=== PATIENT | female | born 2000 | race Caucasian/White ===

== ENCOUNTER 2023-09-12 16:41 | Outpatient (OUT) | payer MEDICAID, SELFPAY ==
--- NOTE | 2023-09-12 16:55 | US_ITS ---
The [address] [address] Patient Name: THOMAS HART MRN: [id number] date: 2000 Sex: F Assigned Patient Location: Current Patient Location: Accession/Order Number: [id number] Exam Date: 09/12/2023 17:00 Report Date: 09/13/2023 06:50 At the request of: KENYON DAS Procedure: US OB transvaginal EXAMINATION: US OB transvaginal HISTORY: Amenorrhea N91.2 COMPARISON: No relevant comparison available. FINDINGS: GESTATIONAL SAC: Present and normal appearing. YOLK SAC: Present and normal appearing. POLE: Present and normal appearing. CARDIAC: Present. UTERUS: Small subchorionic hematoma. OVARIES: Right: Normal. Left: Normal. CERVIX: 4.4 cm in length and closed. CUL-DE-SAC: Normal. OTHER: None. AGE BY LMP: 6 weeks 6 days LEELEE BY LMP: 05/01/2024 AGE BY US CRL: 7 weeks 3 days LEELEE BY US CRL: 04/27/2024 US/US OB transvaginal IMPRESSION: 1. Single live intrauterine . Electronically authenticated by: JAZMIN HALE Date: 09/13/2023 06:50
== END 2023-09-12 16:42 | disposition home or self-care (01) ==
LOC: US 16:46
PROVIDERS: PCP Family Medicine; Visit Provider Midwife
DX: Z34.91 Encounter for supervision of normal pregnancy, unspecified, first trimester (principal); Z3A.01 Less than 8 weeks gestation of pregnancy
CPT/HCPCS: 76817

== ENCOUNTER 2024-02-07 07:21 | Outpatient (RCR) | payer MEDICAID, SELFPAY ==
[2024-02-07 15:00] VITALS: BP 126/82; PULSE 100; O2SAT 96
[2024-02-07] MEDS: RHO(D) IMMUNE GLOBULIN 1,500 UNIT SYRINGE 1500 UNIT IM (15:08)
--- NOTE | 2024-02-07 15:09 | PC.NURSE ---
Pt is here for [facility], she had blood work completed yesterday and confirmed Rh Negative. Vitals obtained and stable, she tolerated injection well and denies any issues or concerns. She was discharged home ambulatory.
== END 2024-02-07 15:11 | disposition home or self-care (01) ==
LOC: INF 07:21
PROVIDERS: PCP Family Medicine; Visit Provider Midwife
DX: O26.893 Other specified pregnancy related conditions, third trimester (principal); Z67.91 Unspecified blood type, Rh negative; Z3A.00 Weeks of gestation of pregnancy not specified
CPT/HCPCS: 36415; 86850; 86900; 86901; 96372; J2790

== ENCOUNTER 2024-04-19 04:18 | Inpatient (IN) | payer MEDICAID, SELFPAY ==
[2024-04-19] VITALS (24 sets, daily range): BP systolic 114–153; BP diastolic 56–96; PULSE 67–120; TEMP 36.7–37
--- OUTSIDE RECORDS SUMMARY | 2024-04-19 04:23 | XMS_ITS | CCD ---
Author Organization [facility] Care Team Providers Care Body Sander Name Role Phone Hajdari, Astrit H Unavailable Unavailable Hajdari, Astrit H Unavailable Unavailable NONE, XXXX Unavailable Unavailable Mike Hall Unavailable Unavailable Mike Hall Unavailable Unavailable NONE, XXXX Unavailable Unavailable SCOTT LEW Admitting Unavailable SCOTT LEW Attending Unavailable MISC, DOCTOR Primary Care Unavailable SCOTT LEW Consulting Unavailable Unavailable Primary Care Provider UnavailKENYON Forrest Attending Unavailable JALNY VOARERIE Admitting Unavailable Beatris Cosby MD Primary Care Provider KENYON VORA Referring Unavailable BEATRIS COSBY Primary Care Unavailable VASYL LOPEZ Attending Unavailable LÓPEZ VORAE Referring Unavailable BEATRIS COSBY Primary Care Unavailable LÓPEZ VORAE Referring Unavailable BEATRIS COSBY Primary Care Unavailable BEATRIS COSBY Primary Care Unavailable TARIQ CEJA Attending Unavailable BEATRIS COSBY Primary Care Unavailable CLAUDETTE CERVANTES Attending Unavailable THIAGO KENYON Admitting Unavailable LÓPEZ VORAE Attending Unavailable JALYN VORAERIE Referring Unavailable BEATRIS COSBY Primary Care Unavailable KENYON VORA Attending Unavailable FLOROKENYON Attending Unavailable FLOROKENYON L Attending Unavailable FLOROKENYON Attending Unavailable FLOROKENYON Attending Unavailable FLOROKENYON Attending Unavailable FLOROKENYON L Referring Unavailable FLOROKENYON Attending Unavailable FLOROKENYON Attending KENYON [place] Referring Unavailable KENYON VORA Attending Unavailable KENYON VORA Attending Unavailable KENYON VORA Attending Unavailable KENYON VORA Attending Unavailable Allergies Allergy Classification Reported Allergen(s) Allergy Type Date of Onset Reaction(s) Facility NSAIDs (1 source) Ibuprofen Drug Allergy 8 Nausea And Vomiting [facility] Promethazine (1 source) Promethazine Drug Allergy 8 Other (See Comments) [facility] (1 source) ibuprofen; Translations: [Motrin] Drug Allergy [facility] (1 source) No Known Allergies; Translations: [No Known Allergies] Propensity to adverse reactions (disorder) [facility] (1 source) Tylenol Extra Strength EZ; Translations: [Tylenol Extra Strength EZ] Propensity to adverse reactions (disorder) [facility] (5 sources) Ibuprofen; Translations: [IBUPROFEN] Drug Allergy 8 [facility] (5 sources) Promethazine; Translations: [PROMETHAZINE] Drug Allergy [facility] Current Medications Medication Drug Class(es) Dates Sig (Normalized) Sig (Original) acetaminophen 325 mg oral tablet (2 sources) Start: 01-01-2021 End: 01-02-2021 acetaminophen (TYLENOL) tablet 650 mg benzocaine 200 mg/ml / menthol 5 mg/ml topical spray (1 source) Standardized Chemical Allergen Start: 01-02-2021 benzocaine-menthol (DERMOPLAST) 20-0.5 % spray buprenorphine 8 mg sublingual tablet (5 sources) Partial Opioid Agonist Start: 01-03-2021 buprenorphine (SUBUTEX) SL tablet 4 mg Start: 01-02-2021 buprenorphine (SUBUTEX) SL tablet 6 mg Start: 01-02-2021 End: 01-02-2021 buprenorphine (SUBUTEX) SL t ablet 4 mg Start: 01-01-2021 End: 01-02-2021 buprenorphine (SUBUTEX) SL t ablet 6 mg buprenorphine (S UBUTEX) 8 MG SUBL SL tablet Place 8 mg under the tongue daily. 1/2 tablet in AM 3/4 tablet Nightly 0 Active buprenorphine 8 mg / naloxone 2 mg sublingual tablet (3 sources) Partial Opioid Agonist, Opioid Antagonist buprenorphine-naloxo ne (SUBOXONE) 8-2 mg per SL tablet Place 0.5 tablets under the tongue 2 (two) times a day. 0 Active diphenhydrAMINE (3 sources) Histamine-1 Receptor Antagonist diphenhydramine HCl (UNISOM, DIPHENHYDRAMINE, ORAL) Take by mouth. 0 Active docusate sodium 100 mg oral capsule (1 source) Start: 2020 docusate sodium (COLACE) capsule 100 mg ferrous sulfate 325 mg oral tablet (2 sources) Start: 2020 ferrous sulfate (IRON 325) tablet 325 mg FLUoxetine 40 mg oral capsule (3 sources) Serotonin Reuptake Inhibitor take 1 capsule by mouth in the morning FLUoxetine (PROzac) 40 mg capsule Take 1 capsule (40 mg total) by mouth in the morning. 0 Active ibuprofen 800 mg oral tablet (1 source) Nonsteroidal Anti-inflammatory Drug Start: 2020 ibuprofen (ADVIL;MOTRIN) tablet 800 mg lanolin 1000 mg/ml topical cream (1 source) Start: 2020 lansinoh lanolin ointment metoclopramide 10 mg oral tablet (3 sources) Dopamine-2 Receptor Antagonist metoclopramide (REGL AN) 10 mg tablet Take 1 tablet (10 mg total) by mouth in the morning and 1 tablet (10 mg total) at noon and 1 tablet (10 mg total) in the evening and 1 tablet (10 mg total) before bedtime. 0 Active ondansetron 4 mg disintegrating oral tablet (4 sources) Serotonin-3 Receptor Antagonist Start: 2020 ondansetron (ZOFRAN-ODT) disintegrating tablet 8 mg Start: 06-30-2020 take 1 tablet by chino th every eight hours as needed for nausea and vomiting ondansetron (ZOFRAN) 4 mg tablet Take 1 tablet (4 mg total) by mouth every 8 (eight) hours as needed for nausea or vomiting. CURRENTLY OUT OF MEDICATION 20 tablet 3 06/30/2020 Active pantoprazole 40 mg delayed release oral tablet (1 source) Proton Pump Inhibitor Start: 05-26-2018 take 1 tablet by mouth once daily before breakfast pantoprazole (PROTONIX) 40 MG tablet Take 1 tablet by mouth every morning (before breakfast) 30 tablet 3 05/26/2018 Active 25/iron fum/folic/dha (-1 ORAL) (3 sources) 25/iron fum/folic/dha (-1 ORAL) Take by mouth. 0 Active Vit-Fe Fumarate-FA ( VITAMIN) 28-0.8 MG TABS tablet (1 source) take 1 tablet by mouth once daily Vit-Fe Fumarate-FA ( VITAMIN) 28-0.8 MG TABS tablet Take 1 tablet by mouth daily 0 Active QUEtiapine 50 mg oral tablet (3 sources) Atypical Antipsychotic take 1 tablet by mouth once daily QUEtiapine (SEROquel) 50 mg tablet Take 1 tablet (50 mg total) by mouth nightly. 0 Active sertraline 100 mg oral tablet (6 sources) Serotonin Reuptake Inhibitor Start: 01-01-2021 End: 01-02-2021 sertraline (ZOLOFT) tablet 100 mg take 2 tablets by mouth once elaine ly sertraline (ZOLOFT) 25 mg tablet Take 50 mg by mouth daily. 0 Active 3 ml sodium chloride 9 mg/ml injection (3 sources) Start: 01-02-2021 0.9 % sodium c hloride infusion Start: 01-02-2021 sodium chlorid e flush 0.9 % injection 10 mL tiZANidine 4 mg oral capsule (3 sources) Central alpha-2 Adrenergic Agonist take 1 capsule by mouth three times daily tiZANidine (ZANAFLEX) 4 mg capsule Take 4 mg by mouth 3 (three) times a day. 0 Active witch corey 500 mg/ml medicated pad (1 source) Start: 01-02-2021 witch corey-glycerin (TUCKS) pad zolpidem tartrate 5 mg oral tablet (1 source) gamma-Aminobutyric Acid-ergic Agonist Start: 01-02-2021 zolpidem (AMBIEN) tablet 5 mg Completed/Discontinued Medications Medication Drug Class(es) Dates Sig (Normalized) Sig (Original) calcium chloride 0.0014 meq/ml / potassium chloride 0.004 meq/ml / sodium chloride 0.103 meq/ml / sodium lactate 0.028 meq/ml injectable solution (1 source) Start: 1 End: lactated ringers infusion 10 ml lidocaine hydrochloride 10 mg/ml injection (1 source) Antiarrhythmic, Amide Local Anesthetic Start: 1 End: 1 lidocaine PF 1 % injection 30 mL 1 ml methylergonovine maleate 0.2 mg/ml injection (1 source) Ergot Derivative Start: 1 End: 1 methylergonovine (METHERGINE) injection 200 mcg miSOPROStol 0.1 mg oral tablet (1 source) Prostaglandin E1 Analog Start: 1 End: 1 miSOPROStol (CYTOTEC) tablet 900 mcg miSOPROStol (CYTOTEC) pre-split tablet TABS 25 mcg (1 source) Start: End: 1 miSOPROStol (CYTOTEC) pre-split tablet TABS 25 mcg oxytocin (PITOCIN) 30 Units in sodium chloride 0.9 % 500 mL infusion (1 source) Start: End: 1 oxytocin (PITOCIN) 30 Units in sodium chloride 0.9 % 500 mL infusion rho(d) immune globulin, human 1500 unt prefilled syringe (1 source) Human Immunoglobulin G Start: End: 1 rho(D) immune globulin (HYPERRHO S/D) injection 300 mcg Problems Active Problems Problem Classification Problem Date Documented Date Episodic/Chronic Administrative/social admission (2 sources) Encounter for examination and observation for unspecified reason; Translations: [Patient encounter status] Onset: 10-23-2023 10-23-2023 Episodic Genitourinary symptoms and ill-defined conditions (1 source) Personal history of urinary (tract) infections; Translations: [Personal history of urinary (tract) infections] Onset: 10-23-2023 Episodic Other complications of (6 sources) Hyperemesis gravidarum; Translations: [Mild hyperemesis gravidarum] Onset: 09-15-2023 09-15-2023 Episodic Other complications of (2 sources) Thyroid dysfunction during , childbirth and the puerperium; Translations: [Endocrine, nutritional and metabolic diseases complicating , unspecified trimester] 10-23-2023 Episodic Other complications of (2 sources) Endocrine, nutritional and metabolic diseases complicating , unspecified trimester; Translations: [Endocrine, nutritional and metabolic diseases complicating , unspecified trimester] Onset: 10-23-2023 Episodic Other complications of (2 sources) Supervision of high risk , unspecified, unspecified trimester; Translations: [Supervision of high risk , unspecified, unspecified trimester] Onset: 10-23-2023 Episodic Other screening for suspected conditions (not mental disorders or infectious disease) (4 sources) Encounter for other specified screening; Translations: [Encounter for screening for nuchal translucency] Onset: 10-23-2023 Episodic Other upper respiratory disease (3 sources) Nasal congestion; Translations: [NASAL CONGESTION] Onset: 12-13-2018 Episodic Other upper respiratory infections (1 source) Acute maxillary sinusitis, unspecified; Translations: [ACUTE MAXILLARY SINUSITIS UNS] Onset: 12-16-2018 Episodic Otitis media and related conditions (1 source) Unspecified nonsuppurative otitis media, left ear; Translations: [UNS NONSUPPURATIVE OM LT EAR] Onset: 12-16-2018 Episodic Residual codes; unclassified (1 source) Personal history of other complications of , childbirth and the puerperium; Translations: [Personal history of other complications of , childbirth and the puerperium] Onset: 10-23-2023 Episodic Residual codes; unclassified (1 source) Personal history of other specified conditions; Translations: [Personal history of other specified conditions] Onset: 10-23-2023 Episodic Residual codes; unclassified (1 source) 12 weeks gestation of ; Translations: [12 weeks gestation of ] Onset: 10-23-2023 Episodic Residual codes; unclassified (1 source) H/O: kidney infection; Translations: [Personal history of other complications of , childbirth and the puerperium] 10-23-2023 Episodic Residual codes; unclassified (1 source) History of substance abuse; Translations: [Personal history of other specified conditions] 10-23-2023 Episodic Residual codes; unclassified (1 source) Gestation period, 12 weeks; Translations: [12 weeks gestation of ] 10-23-2023 Episodic Substance-related disorders (1 source) Nicotine dependence, cigarettes, uncomplicated; Translations: [NICOTINE DEPEND CIGARETTES UNCOMP] Onset: 12-16-2018 Chronic Thyroid disorders (2 sources) Disorder of thyroid, unspecified; Translations: [Disorder of thyroid, unspecified] Onset: 10-23-2023 Episodic Unclassified (1 source) Hx Substance Abuse Onset: 10-23-2023 Unclassified (1 source) Vomiting During Onset: 09-09-2023 Unclassified (1 source) 6 weeks , vomiting, unable to urinate Onset: 09-09-2023 Past or Other Problems Problem Classification Problem Date Documented Date Episodic/Chronic Fluid and electrolyte disorders (2 sources) Hypokalemia; Translations: [Dehydration] Onset: 09-15-2023 Episodic Nausea and vomiting (2 sources) Vomiting; Translations: [Nausea with vomiting, unspecified] Onset: 09-09-2023 Episodic Other complications of ; puerperium affecting management of mother (1 source) Maternal pyrexia; Translations: [Pyrexia during labor, not elsewhere classified] Onset: 05-23-2018 Resolved: 01-03-2021 01-03-2021 Episodic Other complications of (1 source) Urinary tract infection in ; Translations: [Unspecified infection of urinary tract in , third trimester] Resolved: 01-03-2021 01-03-2021 Episodic Other complications of (1 source) Dehydration; Translations: [Other specified related conditions, unspecified trimester] Resolved: 01-03-2021 01-03-2021 Episodic Other complications of (3 sources) Hyperemesis gravidarum with metabolic disturbance; Translations: [Hyperemesis gravidarum with metabolic disturbance] Onset: 11-01-2017 11-01-2017 Episodic Other complications of (3 sources) Pyelonephritis in ; Translations: [Infections of kidney in , second trimester] Onset: 02-21-2018 02-21-2018 Episodic Other complications of (2 sources) Mild hyperemesis gravidarum; Translations: [Mild hyperemesis gravidarum] Onset: 09-15-2023 Episodic Other and delivery including normal (8 sources) Term ; Translations: [Encounter for supervision of normal , unspecified, unspecified trimester] Onset: 06-16-2018 Resolved: 01-03-2021 Episodic Results Test Name Value Interpretation Reference Range Facility US BIOPHYSICAL PROFILE WO NON STRESS TESTINGon 03-13-2024 US BIOPHYSICAL PROFILE WO NON STRESS TESTING TITLE OF EXAM: OB Ultrasound: REASON FOR EXAM: Growth only. TECHNIQUE: Grayscale imaging is performed. Measurements: heart rate: 160 bpm CHAPITO: 11.7 cm (8.3-24.5) Biophysical Profile: 8.8 Breathin Tone: 2 Movement: 2 AFV:2 Cervix Length: 5.8 cm LEELEE: 04/30/2024 Clinical Summary: A single intrauterine is noted in cephalic presentation. heart is observed with a heart rate of 160 bpm. Placenta is located posteriorly. Placenta is Grade I/III Amniotic fluid volume is normal. BPP 8/8. Limited study. Full anatomical survey not performed. Dictated and transcribed 03/16/24/dpd This report has been electronically signed and approved by the interpreting radiologist. Electronically Signed Tariq Anthony M.D. 2024-03-16 12:09:23 Normal Not Available US OB FOLLOW UP TRANSABDOMIN AL APPROACHon 02-21-2024 US OB FOLLOW UP TRANSABDOMINAL APPROACH EXAM: OB Ultrasound: REASON FOR EXAM: Growth only. TECHNIQUE: Grayscale imaging is performed. Measurements: heart rate: 149 bpm CHAPITO: 16.4 (9.0 - 23.4) BPD: 7.6 cm AC: 26.1 cm FL: 5.6 cm GA for sonogram: 29.8 wk (28.0 - 31.6) Cervix length: 6.6 cm LEELEE: 04/30/2024 Weight Estimate: Weight: 1524 gm/ 3 lbs, 5 oz (1289 - 1759) [place] Normal: 1578 gm (1310 - 1847 gm) [place] Wt%: 40% for 30.1 wks Clinical Summary: A single intrauterine is noted in cephalic presentation. Placenta is located fundally. Placenta is Grade I/III. Amniotic fluid volume is normal. Limited study. Full anatomical survey not performed. Dictated and transcribed 02/21/2024/tm This report has been electronically signed and approved by the interpreting radiologist. Electronically Signed Tariq Anthony M.D. 2024-02-21 17:02:02 Normal Not Available HIV 1&2 AB/AG Screen (P24 AG )on 09-23-2023 HIV 1&2 AB/AG Non-Reactive [facility] Hemoglobin A1con 09-23-2023 HbA1c (Bld) [Mass fraction] 4.9 % 4.0 - 6.0 % [facility] Hepatitis B surface antigeno n 09-23-2023 Hepatitis B Surface Antigen Non-Reactive [facility] Hepatitis C(HCV) Ab w/ Refle x to PCRon 09-23-2023 HCV Ab Ql (S) Non-Reactive [facility] No Panel InformationOrdered By: Esther Reinoso on 09-23-2023 [facility] Rubella IGG immune statusOrd ered By: Esther Reinoso on 09-23-2023 Rubella immune IgG 2.41 [facility] Syphilis Total(Unknown Syphi lis Status)on 09-23-2023 Syphilis Non-Reactive [facility] Type and screenon 09-23-2023 Abo/Rh(D) Negative [facility] BASIC METABOLIC PANLon 09-16 Anion gap [Moles/Vol] 6 mmol/L Normal 5-15 [facility] Comment on above: Performed By: #### 2 106-3 #### [facility] ([id number]) [address] [place] [address] 82097 Calcium [Mass/Vol] 8.2 mg/dL Low 8.5-10.5 [facility] Comment on above: Performed By: #### 2 106-3 #### [facility] ([id number]) [address] [place] [address] 99531 Chloride [Moles/Vol] 107 mmol/L Normal 98-109 [facility] Comment on above: Performed By: #### 2 106-3 #### [facility] ([id number]) [address] [place] [address] 77558 CO2 [Moles/Vol] 22 mmol/L Normal 22-32 [facility] Comment on above: Performed By: #### 2 106-3 #### [facility] ([id number]) [address] [place] [address] 14867 Creatinine [Mass/Vol] 0.55 mg/dL Normal 0.40-1.00 [facility] Comment on above: Result Comment: METH OD TRACEABLE TO IDMS STANDARD Performed By: #### 2 106-3 #### [facility] ([id number]) [address] [place] [address] 64698 eGFR (CKD-EPI) NON-RACE DEPENDENT >90 Normal >59 [facility] Comment on above: Result Comment: Reported eGFR is based on the CKD-EPI 2020 equation that does not use a race coefficient. Performed By: #### 2 106-3 #### [facility] ([id number]) [address] [place] [address] 77065 Glucose [Mass/Vol] 98 mg/dL Normal 65-99 [facility] Comment on above: Performed By: #### 2 106-3 #### [facility] ([id number]) [address] [place] [address] 34114 Potassium [Moles/Vol] 3.8 mmol/L Normal 3.5-5.0 [facility] Comment on above: Performed By: #### 2 106-3 #### [facility] ([id number]) [address] [place] [address] 45972 Sodium [Moles/Vol] 135 mmol/L Normal 134-146 [facility] Comment on above: Performed By: #### 2 106-3 #### [facility] ([id number]) [address] [place] [address] 57375 Urea nitrogen [Mass/Vol] 7 mg/dL Normal 5-23 [facility] Comment on above: Performed By: #### 2 106-3 #### [facility] ([id number]) [address] [place] [address] 92478 COMPLETE BLOOD COUNTon 09-16 Erythrocyte distribution width (RBC) [Ratio] 13.4 % Normal 11.5-15.0 [facility] Comment on above: Performed By: #### 2 106-3 #### [facility] ([id number]) [address] [place] [address] 15031 Hematocrit (Bld) [Volume fraction] 29.8 % Low 35-47 [facility] Comment on above: Performed By: #### 2 106-3 #### [facility] ([id number]) [address] [place] [address] 25833 Hemoglobin (Bld) [Mass/Vol] 10.6 g/dL Low 11.7-15.5 [facility] Comment on above: Performed By: #### 2 106-3 #### [facility] ([id number]) [address] [place] [address] 40531 MCH (RBC) [Entitic mass] 31.5 pg Normal 27-34 [facility] Comment on above: Performed By: #### 2 106-3 #### [facility] ([id number]) [address] [place] [address] 56382 MCHC (RBC) [Mass/Vol] 35.5 g/dL Normal 32-36 [facility] Comment on above: Performed By: #### 2 106-3 #### [facility] ([id number]) [address] [place] [address] 14939 MCV (RBC) [Entitic vol] 89 fL Normal 80-100 [facility] Comment on above: Performed By: #### 2 106-3 #### [facility] ([id number]) [address] [place] [address] 26398 Platelet mean volume (Bld) [Entitic vol] 7.6 fL Normal 7-12 [facility] Comment on above: Performed By: #### 2 106-3 #### [facility] ([id number]) [address] [place] [address] 99511 Platelets (Bld) [#/Vol] 214 10*3/uL Normal 150-450 [facility] Comment on above: Performed By: #### 2 106-3 #### [facility] ([id number]) [address] [place] [address] 90894 RBC COUNT 3.36 X10E12/L Low 3.80-5.20 [facility] Comment on above: Performed By: #### 2 106-3 #### [facility] ([id number]) [address] [place] [address] 66094 WBC (Bld) [#/Vol] 8.5 10*3/uL Normal 4.0-11.0 [facility] Comment on above: Performed By: #### 2 106-3 #### [facility] ([id number]) [address] [place] [address] 30912 US ABDOMEN LMTDon 09-16-2023 US ABDOMEN LMTD US ABDOMEN LMTD ABDOMEN LIMITED ULTRASOUND HISTORY: Right upper quadrant pain COMPARISON: None FINDINGS: Pancreas: Visualized portions of the pancreatic head and body are unremarkable. Visualized portions of liver are homogenous in echotexture without focal lesion. No intrahepatic biliary dilatation. Gallbladder sludge without stone, wall thickening, or adjacent fluid. Common duct measures 3 mm, within normal limits for patient's provided age. No visualized ascites. IMPRESSION: 1. Gallbladder sludge without stone, wall thickening, or adjacent fluid. Finalized by Yusef Mcghee MD on 09/16/2023 8:42 AM Normal [facility] AMYLASEon 09-15-2023 Amylase [Catalytic activity/Vol] 32 U/L Normal 28-100 [facility] Comment on above: Performed By: #### 2 106-3 #### [facility] ([id number]) [address] [place] [address] 93179 CBC AND AUTO DIFFon 09-15-19 24 ABSOLUTE BASOPHIL 0.0 X10E9/L Normal 0.0-0.2 [facility] Comment on above: Performed By: #### 1 9123-9, CMP, CBCA, #### [facility] ([id number]) [address] [place] [address] 15287 ABSOLUTE NEUTROPHIL 11.6 X10E9/L High 1.5-6.6 [facility] Comment on above: Performed By: #### 1 91-9, CMP, CBCA, #### [facility] ([id number]) [address] [place] [address] 42569 Basophils/100 WBC (Bld) 0.2 % Normal [facility] Comment on above: Performed By: #### 1 91-9, CMP, CBCA, #### [facility] ([id number]) [address] [place] [address] 25279 Eosinophils (Bld) [#/Vol] 0.0 10*3/uL Normal 0.0-0.4 [facility] Comment on above: Performed By: #### 1 91-9, CMP, CBCA, #### [facility] ([id number]) [address] [place] [address] 70708 Eosinophils/100 WBC (Bld) 0.2 % Normal [facility] Comment on above: Performed By: #### 1 9123-9, CMP, CBCA, #### [facility] ([id number]) [address] [place] [address] 57430 Erythrocyte distribution width (RBC) [Ratio] 13.7 % Normal 11.5-15.0 [facility] Comment on above: Performed By: #### 1 9123-9, CMP, CBCA, #### [facility] ([id number]) [address] [place] [address] 87008 Hematocrit (Bld) [Volume fraction] 40.9 % Normal 35-47 [facility] Comment on above: Performed By: #### 1 9123-9, CMP, CBCA, #### [facility] ([id number]) [address] [place] [address] 52018 Hemoglobin (Bld) [Mass/Vol] 14.4 g/dL Normal 11.7-15.5 [facility] Comment on above: Performed By: #### 1 91-9, CMP, CBCA, #### [facility] ([id number]) [address] [place] [address] 35970 Lymphocytes (Bld) [#/Vol] 1.2 10*3/uL Normal 1.0-3.5 [facility] Comment on above: Performed By: #### 1 91-9, CMP, CBCA, #### [facility] ([id number]) [address] [place] [address] 48562 Lymphocytes/100 WBC (Bld) 8.8 % Normal [facility] Comment on above: Performed By: #### 1 9123-9, CMP, CBCA, #### [facility] ([id number]) [address] [place] [address] 78700 MCH (RBC) [Entitic mass] 30.7 pg Normal 27-34 [facility] Comment on above: Performed By: #### 1 9123-9, CMP, CBCA, #### [facility] ([id number]) [address] [place] [address] 81013 MCHC (RBC) [Mass/Vol] 35.1 g/dL Normal 32-36 [facility] Comment on above: Performed By: #### 1 9123-9, CMP, CBCA, #### [facility] ([id number]) [address] [place] [address] 42308 MCV (RBC) [Entitic vol] 87 fL Normal 80-100 [facility] Comment on above: Performed By: #### 1 9123-9, CMP, CBCA, #### [facility] ([id number]) [address] [place] [address] 74109 Monocytes (Bld) [#/Vol] 0.8 10*3/uL Normal 0-0.9 [facility] Comment on above: Performed By: #### 1 9123-9, CMP, CBCA, #### [facility] ([id number]) [address] [place] [address] 93498 Monocytes/100 WBC (Bld) 6.2 % Normal [facility] Comment on above: Performed By: #### 1 9123-9, CMP, CBCA, #### [facility] ([id number]) [address] [place] [address] 86096 Neutrophils/100 WBC (Bld) 84.6 % Normal [facility] Comment on above: Performed By: #### 1 9123-9, CMP, CBCA, #### [facility] ([id number]) [address] [place] [address] 24452 Platelet mean volume (Bld) [Entitic vol] 7.8 fL Normal 7-12 [facility] Comment on above: Performed By: #### 1 9123-9, CMP, CBCA, #### [facility] ([id number]) [address] [place] [address] 08540 Platelets (Bld) [#/Vol] 277 10*3/uL Normal 150-450 [facility] Comment on above: Performed By: #### 1 9123-9, CMP, CBCA, #### [facility] ([id number]) [address] [place] [address] 38201 RBC COUNT 4.69 X10E12/L Normal 3.80-5.20 [facility] Comment on above: Performed By: #### 1 9123-9, CMP, CBCA, 85172-7 #### [facility] ([id number]) [address] [place] [address] 08238 WBC (Bld) [#/Vol] 13.7 10*3/uL High 4.0-11.0 [facility] Comment on above: Performed By: #### 1 9123-9, CMP, CBCA, #### [facility] ([id number]) [address] [place] [address] 53927 COMPREHENSIVE METABOLIC PANE Nathan 09-15-2023 Albumin [Mass/Vol] 4.2 g/dL Normal 3.2-5.3 [facility] Comment on above: Performed By: #### 1 9123-9, CMP, CBCA, #### [facility] ([id number]) [address] [place] [address] 72998 ALP [Catalytic activity/Vol] 62 U/L Normal 39-130 [facility] Comment on above: Performed By: #### 1 9123-9, CMP, CBCA, #### [facility] ([id number]) [address] [place] [address] 06377 ALT [Catalytic activity/Vol] 32 U/L High 0-31 [facility] Comment on above: Performed By: #### 1 9123-9, CMP, CBCA, 66660-1 #### [facility] ([id number]) [address] [place] [address] 52310 Anion gap [Moles/Vol] 14 mmol/L Normal 5-15 [facility] Comment on above: Performed By: #### 1 9123-9, CMP, CBCA, 98927-9 #### [facility] ([id number]) [address] [place] [address] 67106 AST [Catalytic activity/Vol] 24 U/L Normal 0-41 [facility] Comment on above: Performed By: #### 1 9123-9, CMP, CBCA, #### [facility] ([id number]) [address] [place] [address] 56276 Bilirubin [Mass/Vol] 1.8 mg/dL High 0.3-1.2 [facility] Comment on above: Performed By: #### 1 9122-9, CMP, CBCA, #### [facility] ([id number]) [address] [place] [address] 72902 Calcium [Mass/Vol] 8.9 mg/dL Normal 8.5-10.5 [facility] Comment on above: Performed By: #### 1 91-9, CMP, CBCA, #### [facility] ([id number]) [address] [place] [address] 25218 Chloride [Moles/Vol] 99 mmol/L Normal 98-109 [facility] Comment on above: Performed By: #### 1 9123-9, CMP, CBCA, #### [facility] ([id number]) [address] [place] [address] 67083 CO2 [Moles/Vol] 18 mmol/L Low 22-32 [facility] Comment on above: Performed By: #### 1 9123-9, CMP, CBCA, #### [facility] ([id number]) [address] [place] [address] 81705 Creatinine [Mass/Vol] 0.66 mg/dL Normal 0.40-1.00 [facility] Comment on above: Result Comment: METH OD TRACEABLE TO IDMS STANDARD Performed By: #### 1 9123-9, CMP, CBCA, #### [facility] ([id number]) [address] [place] [address] 61846 eGFR (CKD-EPI) NON-RACE DEPENDENT >90 Normal >59 [facility] Comment on above: Result Comment: Reported eGFR is based on the CKD-EPI 2020 equation that does not use a race coefficient. Performed By: #### 1 9123-9, CMP, CBCA, #### [facility] ([id number]) [address] [place] [address] 76699 Glucose [Mass/Vol] 109 mg/dL High 65-99 [facility] Comment on above: Performed By: #### 1 91-9, CMP, CBCA, #### [facility] ([id number]) [address] [place] [address] 34162 Potassium [Moles/Vol] 3.4 mmol/L Low 3.5-5.0 [facility] Comment on above: Performed By: #### 1 9123-9, CMP, CBCA, #### [facility] ([id number]) [address] [place] [address] 19659 Protein [Mass/Vol] 7.8 g/dL Normal 6.0-8.0 [facility] Comment on above: Performed By: #### 1 9123-9, CMP, CBCA, #### [facility] ([id number]) [address] [place] [address] 41718 Sodium [Moles/Vol] 131 mmol/L Low 134-146 [facility] Comment on above: Performed By: #### 1 9123-9, CMP, CBCA, #### [facility] ([id number]) [address] [place] [address] 84893 Urea nitrogen [Mass/Vol] 11 mg/dL Normal 5-23 [facility] Comment on above: Performed By: #### 1 9123-9, CMP, CBCA, 49626-7 #### [facility] ([id number]) [address] [place] [address] 29526 FREE T4on 09-15-2023 Free T4 [Mass/Vol] 1.32 ng/dL Normal 0.61-1.60 [facility] Comment on above: Performed By: #### 2 106-3 #### [facility] ([id number]) [address] [place] [address] 97210 HCG.beta subunit IA 3rd IS Q non 09-15-2023 HCG.beta subunit Qn 582181 m[IU]/mL Normal [facility] Comment on above: Result Comment: NEW REFERENCE RANGE WEEKS (SINCE LMP) MIU/mL 3 WEEKS 5 - 50 4 WEEKS 5 - 426 5 WEEKS 18 - 7,340 6 WEEKS 1,080 - 56,500 7-8 WEEKS 7,650 - 229,000 9-12 WEEKS 25,700 - 288,000 13-16 WEEKS 13,300 - 254,000 17-24 WEEKS 4,060 - 165,400 25-40 WEEKS 3,640 - 117,000 MALES AND NON- FEMALES - <5 MIU/mL This test has been FDA approved for use in only. Elevated levels are not necessarily diagnostic for trophoblastic or nontrophoblastic neoplasms. Performed By: #### 2 106-3 #### [facility] ([id number]) [address] [place] [address] 65882 LIPASEon 09-15-2023 Lipase [Catalytic activity/Vol] 30 U/L Normal 17-40 [facility] Comment on above: Performed By: #### 2 106-3 #### [facility] ([id number]) [address] [place] [address] 64208 MAGNESIUMon 09-15-2023 Magnesium [Mass/Vol] 1.8 mg/dL Normal 1.8-2.6 [facility] Comment on above: Performed By: #### 1 9123-9, CMP, CBCA, 79419-1 #### [facility] ([id number]) [address] [place] [address], [place] [address] TSH WITH REFLEXon 09-15-2023 TSH 0.05 uIU/mL Low 0.49-4.67 [facility] Comment on above: Performed By: #### 2 106-3 #### [facility] ([id number]) [address] [place] [address], [place] [address] URINALYSISon 09-15-2023 Bilirubin Ql (U) Negative Normal NEG [facility] Comment on above: Performed By: #### 2 106-3 #### [facility] ([id number]) [address] [place] [address], [place] [address] BLOOD/HGB Trace Abnormal NEG [facility] Comment on above: Performed By: #### 2 106-3 #### [facility] ([id number]) [address] [place] [address], [place] [address] Color (U) YELLOW Normal YELLOW [facility] Comment on above: Performed By: #### 2 106-3 #### [facility] ([id number]) [address] [place] [address], [place] [address] Glucose Ql (U) Negative Normal NEG [facility] Comment on above: Performed By: #### 2 106-3 #### [facility] ([id number]) [address] [place] [address], [place] [address] Ketones Ql (U) >80 Abnormal NEG [facility] Comment on above: Performed By: #### 2 106-3 #### [facility] ([id number]) [address] [place] [address] [place] [address] Leukocyte esterase Test strip Ql (U) Negative Normal NEG [facility] Comment on above: Performed By: #### 2 106-3 #### [facility] ([id number]) [address] [place] [address] 73577 MUCOUS PRESENT Abnormal NONE [facility] Comment on above: Performed By: #### 2 106-3 #### [facility] ([id number]) [address] [place] [address] 31012 Nitrite Ql (U) Negative Normal NEG [facility] Comment on above: Performed By: #### 2 106-3 #### [facility] ([id number]) [address] [place] [address] 00177 pH (U) 6.0 [pH] Normal 5.0-8.5 [facility] Comment on above: Performed By: #### 2 106-3 #### [facility] ([id number]) [address] [place] [address] 81628 Protein Ql (U) Trace Abnormal NEG [facility] Comment on above: Performed By: #### 2 106-3 #### [facility] ([id number]) [address] [place] [address] 55213 R.B.CELLS 0 to 1 Normal 0-5 [facility] Comment on above: Performed By: #### 2 106-3 #### [facility] ([id number]) [address] [place] [address] 06795 Specific gravity (U) [Rel density] >1.030 Normal 1.003-1.03 5 [facility] Comment on above: Performed By: #### 2 106-3 #### [facility] ([id number]) [address] [place] [address] 59770 SQUAMOUS EPITHELIUM 5 /hpf Normal 0-5 [facility] Comment on above: Performed By: #### 2 106-3 #### [facility] ([id number]) [address] [place] [address] 74464 TURBIDITY CLEAR Normal CLEAR [facility] Comment on above: Performed By: #### 2 106-3 #### [facility] ([id number]) [address] [place] [address] 67730 Urobilinogen Qn (U) 0.2 {Carleen'U}/dL Normal <1.1 [facility] Comment on above: Performed By: #### 2 106-3 #### [facility] ([id number]) [address] [place] [address] [place] [address] W.B.CELLS 2 /hpf Normal 0-5 [facility] Comment on above: Performed By: #### 2 106-3 #### [facility] ([id number]) [address] [place] [address] 43512 URN MACROSCOPIC NURon 2023 BILIRUBIN IGNACIO Small Abnormal NEG [facility] Comment on above: Performed By: #### 2 106-3 #### [facility] ([id number]) [address] [place] [address] [place] [address] BLOOD/HGB IGNACIO Trace Abnormal NEG [facility] Comment on above: Performed By: #### 2 106-3 #### [facility] ([id number]) [address] [place] [address] [place] [address] GLUCOSE IGNACIO Negative Normal NEG [facility] Comment on above: Performed By: #### 2 106-3 #### [facility] ([id number]) [address] [place] [address] [place] [address] KETONES IGNACIO >=160 Abnormal NEG [facility] Comment on above: Performed By: #### 2 106-3 #### [facility] ([id number]) [address] [place] [address] [place] [address] LEUKOCYTE ESTERASE IGNACIO Negative Normal NEG [facility] Comment on above: Performed By: #### 2 106-3 #### [facility] ([id number]) [address] [place] [address] 94074 NITRITE IGNACIO Negative Normal NEG [facility] Comment on above: Performed By: #### 2 106-3 #### [facility] ([id number]) [address] [place] [address] 18440 PH IGNACIO 5.5 Normal 5.0-8.5 [facility] Comment on above: Performed By: #### 2 106-3 #### [facility] ([id number]) [address] [place] [address] 54156 PROTEIN IGNACIO 30 mg/dL Abnormal NEG [facility] Comment on above: Performed By: #### 2 106-3 #### [facility] ([id number]) [address] [place] [address] 52713 SPECIFIC GRAVITY IGNACIO >=1.030 Normal 1.003-[address] [place] [address] Comment on above: Performed By: #### 2 106-3 #### [facility] ([id number]) [address] [place] [address] 50876 UROBILINOGEN IGNACIO 1.0 eu/dL Normal <1.1 [facility] Comment on above: Performed By: #### 2 106-3 #### [facility] ([id number]) [address] [place] [address] 76122 CBC AND AUTO DIFFon 09-09-19 24 ABSOLUTE BASOPHIL 0.0 X10E9/L Normal 0.0-0.2 [facility] Comment on above: Performed By: #### 3 040-3, 82154-1, CMP, CBCA, 97847-0 #### [facility] ([id number]) [address] [place] [address] 82618 ABSOLUTE NEUTROPHIL 7.9 X10E9/L High 1.5-6.6 [facility] Comment on above: Performed By: #### 3 040-3, , CMP, CBCA, #### [facility] ([id number]) [address] [place] [address] 48544 Basophils/100 WBC (Bld) 0.2 % Normal [facility] Comment on above: Performed By: #### 3 040-3, 72383-6, CMP, CBCA, #### [facility] ([id number]) [address] [place] [address] 87649 Eosinophils (Bld) [#/Vol] 0.0 10*3/uL Normal 0.0-0.4 [facility] Comment on above: Performed By: #### 3 040-3, , CMP, CBCA, #### [facility] ([id number]) [address] [place] [address] 10261 Eosinophils/100 WBC (Bld) 0.2 % Normal [facility] Comment on above: Performed By: #### 3 040-3, , CMP, CBCA, #### [facility] ([id number]) [address] [place] [address] 33889 Erythrocyte distribution width (RBC) [Ratio] 13.2 % Normal 11.5-15.0 [facility] Comment on above: Performed By: #### 3 040-3, , CMP, CBCA, #### [facility] ([id number]) [address] [place] [address] 01300 Hematocrit (Bld) [Volume fraction] 40.1 % Normal 35-47 [facility] Comment on above: Performed By: #### 3 040-3, 42972-7, CMP, CBCA, #### [facility] ([id number]) [address] [place] [address] 80928 Hemoglobin (Bld) [Mass/Vol] 14.3 g/dL Normal 11.7-15.5 [facility] Comment on above: Performed By: #### 3 040-3, , CMP, CBCA, #### [facility] ([id number]) [address] [place] [address] 48717 Lymphocytes (Bld) [#/Vol] 1.6 10*3/uL Normal 1.0-3.5 [facility] Comment on above: Performed By: #### 3 040-3, , CMP, CBCA, #### [facility] ([id number]) [address] [place] [address] 96016 Lymphocytes/100 WBC (Bld) 15.6 % Normal [facility] Comment on above: Performed By: #### 3 040-3, , CMP, CBCA, #### [facility] ([id number]) [address] [place] [address] 31547 MCH (RBC) [Entitic mass] 30.9 pg Normal 27-34 [facility] Comment on above: Performed By: #### 3 040-3, , CMP, CBCA, #### [facility] ([id number]) [address] [place] [address] 94649 MCHC (RBC) [Mass/Vol] 35.6 g/dL Normal 32-36 [facility] Comment on above: Performed By: #### 3 040-3, 78398-6, CMP, CBCA, #### [facility] ([id number]) [address] [place] [address] 83465 MCV (RBC) [Entitic vol] 87 fL Normal 80-100 [facility] Comment on above: Performed By: #### 3 040-3, , CMP, CBCA, #### [facility] ([id number]) [address] [place] [address] 40403 Monocytes (Bld) [#/Vol] 0.7 10*3/uL Normal 0-0.9 [facility] Comment on above: Performed By: #### 3 040-3, 78605-4, CMP, CBCA, 38572-5 #### [facility] ([id number]) [address] [place] [address] 30371 Monocytes/100 WBC (Bld) 6.4 % Normal [facility] Comment on above: Performed By: #### 3 040-3, 89591-2, CMP, CBCA, #### [facility] ([id number]) [address] [place] [address] 02307 Neutrophils/100 WBC (Bld) 77.6 % Normal [facility] Comment on above: Performed By: #### 3 040-3, 28349-9, CMP, CBCA, #### [facility] ([id number]) [address] [place] [address] 39484 Platelet mean volume (Bld) [Entitic vol] 7.4 fL Normal 7-12 [facility] Comment on above: Performed By: #### 3 040-3, 97613-1, CMP, CBCA, #### [facility] ([id number]) [address] [place] [address] 19073 Platelets (Bld) [#/Vol] 306 10*3/uL Normal 150-450 [facility] Comment on above: Performed By: #### 3 040-3, 69171-3, CMP, CBCA, #### [facility] ([id number]) [address] [place] [address] 84285 RBC COUNT 4.62 X10E12/L Normal 3.80-5.20 [facility] Comment on above: Performed By: #### 3 040-3, 23847-5, CMP, CBCA, 51947-3 #### [facility] ([id number]) [address] [place] [address] 75656 WBC (Bld) [#/Vol] 10.2 10*3/uL Normal 4.0-11.0 [facility] Comment on above: Performed By: #### 3 040-3, 01845-9, CMP, CBCA, 22093-0 #### [facility] ([id number]) [address] [place] [address] 01065 COMPREHENSIVE METABOLIC PANE Nathan 09-09-2023 Albumin [Mass/Vol] 4.5 g/dL Normal 3.2-5.3 [facility] Comment on above: Performed By: #### 3 040-3, 14634-3, CMP, CBCA, 74750-9 #### [facility] ([id number]) [address] [place] [address] 92034 ALP [Catalytic activity/Vol] 61 U/L Normal 39-130 [facility] Comment on above: Performed By: #### 3 040-3, 99357-8, CMP, CBCA, 68507-3 #### [facility] ([id number]) [address] [place] [address] 61116 ALT [Catalytic activity/Vol] 27 U/L Normal 0-31 [facility] Comment on above: Performed By: #### 3 040-3, 45524-7, CMP, CBCA, 94540-5 #### [facility] ([id number]) [address] [place] [address] 65021 Anion gap [Moles/Vol] 9 mmol/L Normal 5-15 [facility] Comment on above: Performed By: #### 3 040-3, 76290-3, CMP, CBCA, 73358-4 #### [facility] ([id number]) [address] [place] [address], [place] [address] AST [Catalytic activity/Vol] 28 U/L Normal 0-41 [facility] Comment on above: Performed By: #### 3 040-3, , CMP, CBCA, #### [facility] ([id number]) [address] [place] [address] 70258 Bilirubin [Mass/Vol] 1.4 mg/dL High 0.3-1.2 [facility] Comment on above: Performed By: #### 3 040-3, , CMP, CBCA, #### [facility] ([id number]) [address] [place] [address] 39304 Calcium [Mass/Vol] 9.3 mg/dL Normal 8.5-10.5 [facility] Comment on above: Performed By: #### 3 040-3, , CMP, CBCA, #### [facility] ([id number]) [address] [place] [address] 26004 Chloride [Moles/Vol] 101 mmol/L Normal 98-109 [facility] Comment on above: Performed By: #### 3 040-3, , CMP, CBCA, #### [facility] ([id number]) [address] [place] [address] 27692 CO2 [Moles/Vol] 25 mmol/L Normal 22-32 [facility] Comment on above: Performed By: #### 3 040-3, , CMP, CBCA, #### [facility] ([id number]) [address] [place] [address] 70774 Creatinine [Mass/Vol] 0.62 mg/dL Normal 0.40-1.00 [facility] Comment on above: Result Comment: METH OD TRACEABLE TO IDMS STANDARD Performed By: #### 3 040-3, , CMP, CBCA, #### [facility] ([id number]) [address] [place] [address] 20014 eGFR (CKD-EPI) NON-RACE DEPENDENT >90 Normal >59 [facility] Comment on above: Result Comment: Reported eGFR is based on the CKD-EPI 2020 equation that does not use a race coefficient. Performed By: #### 3 040-3, 79755-7, CMP, CBCA, #### [facility] ([id number]) [address] [place] [address] 90192 Glucose [Mass/Vol] 95 mg/dL Normal 65-99 [facility] Comment on above: Performed By: #### 3 040-3, , CMP, CBCA, #### [facility] ([id number]) [address] [place] [address] 16572 Potassium [Moles/Vol] 3.5 mmol/L Normal 3.5-5.0 [facility] Comment on above: Performed By: #### 3 040-3, , CMP, CBCA, 68562-2 #### [facility] ([id number]) [address] [place] [address] 36019 Protein [Mass/Vol] 7.7 g/dL Normal 6.0-8.0 [facility] Comment on above: Performed By: #### 3 040-3, 99693-8, CMP, CBCA, #### [facility] ([id number]) [address] [place] [address] 77064 Sodium [Moles/Vol] 135 mmol/L Normal 134-146 [facility] Comment on above: Performed By: #### 3 040-3, , CMP, CBCA, 11892-6 #### [facility] ([id number]) [address] [place] [address] 11544 Urea nitrogen [Mass/Vol] 9 mg/dL Normal 5-23 [facility] Comment on above: Performed By: #### 3 040-3, , CMP, CBCA, #### [facility] ([id number]) [address] [place] [address] 44955 HCG ( test) Ql (U)o n 09-09-2023 Beta HCG ( test) Ql (U) Positive Abnormal NEG [facility] Comment on above: Performed By: #### 2 106-3 #### [facility] ([id number]) [address] [place] [address] 01029 HCG.beta subunit IA 3rd IS Q non 09-09-2023 HCG.beta subunit Qn 098087 m[IU]/mL Normal [facility] Comment on above: Result Comment: NEW REFERENCE RANGE WEEKS (SINCE LMP) MIU/mL 3 WEEKS 5 - 50 4 WEEKS 5 - 426 5 WEEKS 18 - 7,340 6 WEEKS 1,080 - 56,500 7-8 WEEKS 7,650 - 229,000 9-12 WEEKS 25,700 - 288,000 13-16 WEEKS 13,300 - 254,000 17-24 WEEKS 4,060 - 165,400 25-40 WEEKS 3,640 - 117,000 MALES AND NON- FEMALES - <5 MIU/mL This test has been FDA approved for use in only. Elevated levels are not necessarily diagnostic for trophoblastic or nontrophoblastic neoplasms. Performed By: #### 3 040-3, 51985-6, CMP, CBCA, #### [facility] ([id number]) [address] [place] [address] 94593 LIPASEon 09-09-2023 Lipase [Catalytic activity/Vol] 27 U/L Normal 17-40 [facility] Comment on above: Performed By: #### 3 040-3, 74984-2, CMP, CBCA, #### [facility] ([id number]) [address] [place] [address] 69379 MAGNESIUMon 09-09-2023 Magnesium [Mass/Vol] 2.0 mg/dL Normal 1.8-2.6 [facility] Comment on above: Performed By: #### 3 040-3, 68921-7, CMP, CBCA, #### [facility] ([id number]) [address] [place] [address] 34813 URN MACROSCOPIC NURon 2023 BILIRUBIN IGNACIO MODERATE Abnormal NEG [facility] Comment on above: Performed By: #### N UM #### [facility] ([id number]) [address] [place] [address] 99428 BLOOD/HGB IGNACIO Negative Normal NEG [facility] Comment on above: Performed By: #### N UM #### [facility] ([id number]) [address] [place] [address] [place] [address] GLUCOSE IGNACIO Negative Normal NEG [facility] Comment on above: Performed By: #### N UM #### [facility] ([id number]) [address] [place] [address] [place] [address] KETONES IGNACIO >=160 Abnormal NEG [facility] Comment on above: Performed By: #### N UM #### [facility] ([id number]) [address] [place] [address] [place] [address] LEUKOCYTE ESTERASE IGNACIO Negative Normal NEG [facility] Comment on above: Performed By: #### N UM #### [facility] ([id number]) [address] [place] [address] [place] [address] NITRITE IGNACIO Negative Normal NEG [facility] Comment on above: Performed By: #### N UM #### [facility] ([id number]) [address] [place] [address] 74972 PH IGNACIO 6.0 Normal 5.0-8.5 [facility] Comment on above: Performed By: #### N UM #### [facility] ([id number]) [address] [place] [id number] PROTEIN IGNACIO 30 mg/dL Abnormal NEG [facility] Comment on above: Performed By: #### N UM #### [facility] ([id number]) [address] [place] [id number] SPECIFIC GRAVITY IGNACIO 1.025 Normal 1.003-1 .03 5 [facility] Comment on above: Performed By: #### N UM #### [facility] ([id number]) [address] [place] [address]31 UROBILINOGEN IGNACIO >=8.0 Normal <1.1 [facility] Comment on above: Performed By: #### N UM #### [facility] ([id number]) [address] [place] [address]753 XR Knee Left - OA Protocolon 02-28-2022 XR Knee Left - OA Protocol EXAM: XR BILATERAL KNEES FINDINGS: Minimal left patellofemoral joint space reduction is seen. No effusion or acute fracture is identified. Tibial plateaus are maintained in height. No significant osteophyte formation is present. Menisci are non-calcified. Normal patellar tracking. IMPRESSION: Minimal arthritis, no effusion or fracture EXAM: XR BILATERAL KNEES STANDING WEIGHT-BEARING VIEW FINDINGS: Standing weight-bearing view demonstrates preservation of joint spaces without cortical or subchondral fracture suggested. Menisci are not calcified. IMPRESSION: Preserved tibial femoral joint spaces Report reported and signed by Cortes Haider on 02/28/2022 1459 Normal [facility] Specialist XR Knee Right - OA Protocolo n 02-28-2022 XR Knee Right - OA Protocol Please see the left knee x-ray report from this same date Report reported and signed by Cortes Haider on 02/28/2022 1459 Normal [facility] Q - CBC W/DIFF AND PLTon BASOABS 59 cells/uL Normal 0-200 [facility] [employer] Comment on above: Order Comment: [facility] performed at: [employer], [employer] [facility], [facility], [address] [place] [address], [address] [place] [address], [employer] Supervisor: Geovani Gutiérrez MD [facility] Collection Date/Time: [facility] Results Received Date/Time: [facility] Reported Date/Time: Performed By: #### 4 2A, [id number], [id number] #### [facility] Default [address] [place] [address] Basophils/100 WBC (Bld) 1.0 % Normal [facility] [employer] [employer] Comment on above: Order Comment: [facility] performed at: [employer], [employer] [facility], [address] [place] [address], [address] [place] [address], [id number], [place] Boat Builder Supervisor: Geovani Gutiérrez MD [facility] Date/Time: [facility] Results Received Date/Time: [facility] Reported Date/Time: Performed By: #### 4 2A, 3189, 11299 #### [facility] Default [address] [place] [address] EOSABS 112 cells/uL Normal 15-500 [facility] Consultant In Ergonomics And Safety Comment on above: Order Comment: [facility] Testing performed at: Major Aide, [employer] [facility], [address] [place] [address], [address] [place] [address], [address] [place] [address], Wood [employer] Supervisor: Geovani Gutiérrez MD [facility] Collection Date/Time: [facility] Results Received Date/Time: [facility] Reported Date/Time: Performed By: #### 4 2A, 3608, 94952 #### [facility] Default [address] [place] [address] Eosinophils/100 WBC (Bld) 1.9 % Normal [facility] Consultant In Ergonomics And Safety Comment on above: Order Comment: [facility] performed at: Major Aide, [employer] [facility], [facility], [address] [place] [address], [phone], [employer] Supervisor: Geovani Gutiérrez MD [facility] Collection Date/Time: [facility] Results Received Date/Time: [facility] Reported Date/Time: Performed By: #### 4 2A, 73, 11689 #### [facility] Default [address] [place] [address] Erythrocyte distribution width (RBC) [Ratio] 13.0 % Normal 11.0-15.0 [facility] Consultant In Ergonomics And Safety Comment on above: Order Comment: [facility] performed at: Major Aide, [employer] [facility], [address] [place] [address], [address] [place] [address], [address] [place] [address], Wood [employer] Supervisor: Geovani Gutiérrez MD [facility] Date/Time: [facility] Results Received Date/Time: [facility] Reported Date/Time: Performed By: #### 4 2A, 94, 19077 #### [facility] Default [address] [place] [address] Hematocrit (Bld) [Volume fraction] 42.9 % Normal 35.0-45.0 [facility] Consultant In Ergonom[employer] And Safety Comment on above: Order Comment: [facility] Testing performed at: [employer] [facility], [address] [place] [address], [address] [place] [address], [address] [place] [address], Wood [employer] Supervisor: Geovani Gutiérrez MD [facility] Collection Date/Time: [facility] Results Received Date/Time: [facility] Reported Date/Time: Performed By: #### 4 2A, 13, 64963 #### [facility] Default [address] [place] [address] Hemoglobin (Bld) [Mass/Vol] 14.8 g/dL Normal 11.7-15.5 [facility] Consultant In Ergonom[employer] And Safety Comment on above: Order Comment: [facility] Testing performed at: [employer] [facility], [address] [place] [address], [address] [place] [address], [address] [place] [address], Wood Boat [employer] Supervisor: Geovani Gutiérrez MD [facility] Collection Date/Time: [facility] Results Received Date/Time: [facility] Reported Date/Time: Performed By: #### 4 2A, 7572, 32657 #### [facility] Default [address] [place] [address] Lymphocytes (Bld) [#/Vol] 2.378 10*3/uL Normal 850-3900 [facility] Specialist Comment on above: Order Comment: [facility] performed at: Major Aide, [employer] [facility], [address] [place] [address], [address] [place] [address], [address] [place] [address], Wood Boat [employer] Supervisor: Geovani Gutiérrez MD [facility] Collection Date/Time: [facility] Results Received Date/Time: [facility] Reported Date/Time: Performed By: #### 4 2A, 7572, #### [facility] Default [address] [place] [address] Lymphocytes/100 WBC (Bld) 40.3 % Normal [facility] Consultant In Ergonom[employer] And Safety Comment on above: Order Comment: [facility] performed at: Major Aide, [employer] [facility], [address] [place] [address], [address] [place] [address], [address] [place] [address], Wood [employer] Supervisor: Geovani Gutiérrez MD [facility] Collection Date/Time: [facility] Results Received Date/Time: [facility] Reported Date/Time: Performed By: #### 4 2A, 7572, #### [facility] Default [address] [place] [address] MCH (RBC) [Entitic mass] 30.3 pg Normal 27.0-33.0 [facility] Consultant In Ergonom[employer] And Safety Comment on above: Order Comment: [facility] performed at: Major Aide, [employer] [facility], [address] [place] [address], [address] [place] [address], [address] [place] [address], Wood [employer] Supervisor: Geovani Gutiérrez MD [facility] Collection Date/Time: [facility] Results Received Date/Time: [facility] Reported Date/Time: Performed By: #### 4 2A, 7572, 13099 #### [facility] Default [address] [place] [address] MCHC (RBC) [Mass/Vol] 34.5 g/dL Normal 32.0-36.0 [facility] Comment on above: Order Comment: [facility] Testing performed at: Major Aide, [employer] [facility], [address] [place] [address], [address] [place] [address], [address] [place] [address], [employer] Supervisor: Geovani Gutiérrez MD [facility] Collection Date/Time: [facility] Results Received Date/Time: [facility] Reported Date/Time: Performed By: #### 4 2A, 5229, 90727 #### [facility] Default [address] [place] [address] MCV (RBC) [Entitic vol] 87.9 fL Normal 80.0-100.0 [facility] Specialist Comment on above: Order Comment: [facility] Testing performed at: Major Aide, [employer] [facility], [address] [place] [address], [address] [place] [address], [address] [place] [address], [employer] Supervisor: Geovani Gutiérrez MD [facility] Collection Date/Time: [facility] Results Received Date/Time: [facility] Reported Date/Time: Performed By: #### 4 2A, 5514, 10752 #### [facility] Default [address] [place] [address] MONOABS 490 cells/uL Normal 200-950 [facility] Specialist Comment on above: Order Comment: [facility] Testing performed at: [employer] [facility], [address] [place] [address], [address] [place] [address], [address] [place] [address], [employer] Supervisor: Geovani Gutiérrez MD [facility] Collection Date/Time: [facility] Results Received Date/Time: [facility] Reported Date/Time: Performed By: #### 4 2A, 9327, 13069 #### [facility] Default [address] [place] [address] Monocytes/100 WBC (Bld) 8.3 % Normal [facility] Consultant In Ergonomics And Safety Comment on above: Order Comment: [facility] performed at: Major Aide, [employer] [facility], [address] , [address] [place] [address], [phone], Wood [employer] Supervisor: Geovani Gutiérrez MD [facility] Collection Date/Time: [facility] Results Received Date/Time: [facility] Reported Date/Time: Performed By: #### 4 2A, 7573, 42995 #### [facility] Default [address] [place] [address] Neutrophils (Bld) [#/Vol] 2.862 10*3/uL Normal 8488-1439 [facility] Consultant In Ergonomics And Safety Comment on above: Order Comment: [facility] performed at: Major Aide, [employer] [facility], [facility], [address] [place] [address], [address] [place] [address], Wood [employer] Supervisor: Geovani Gutiérrez MD [facility] Collection Date/Time: [facility] Results Received Date/Time: [facility] Reported Date/Time: Performed By: #### 4 2A, 4973, 43460 #### [facility] Default [address] [place] [address] Neutrophils/100 WBC (Bld) 48.5 % Normal [facility] Consultant In Er[employer]onom[employer] And Safety Comment on above: Order Comment: [facility] performed at: Major Aide, [employer] [facility], [address] [facility], [address] [place] [address], [phone], [employer] Supervisor: Geovani Gutiérrez MD [facility] Collection Date/Time: [facility] Results Received Date/Time: [facility] Reported Date/Time: Performed By: #### 4 2A, 1331, 01564 #### [facility] Default [address] [place] [address] Platelet mean volume (Bld) [Entitic vol] 10.2 fL Normal 7.5-12.5 [facility] Consultant In Er[employer]onom[employer] And Safety Comment on above: Order Comment: [facility] performed at: Major Aide, [employer] [facility], [address] , [address] [place] [address], [phone], Wood [employer] Supervisor: Geovani Gutiérrez MD [facility] Collection Date/Time: [facility] Results Received Date/Time: [facility] Reported Date/Time: Performed By: #### 4 2A, 7573, 85870 #### [facility] Default [address] [place] [address] Platelets (Bld) [#/Vol] 262 10*3/uL Normal 140-400 [facility] Comment on above: Order Comment: [facility] performed at: Major Aide, [employer] [facility], [address] , [address] [place] [address], [phone], Wood [employer] Supervisor: Geovani Gutiérrez MD [facility] Collection Date/Time: [facility] Results Received Date/Time: [facility] Reported Date/Time: Performed By: #### 4 2A, 75, 08072 #### [facility] Default [address] [place] [address] RBC (Bld) [#/Vol] 4.88 10*6/uL Normal 3.80-5.10 [facility] Comment on above: Order Comment: [facility] Testing performed at: Major Aide, [employer] [facility], [address] , [address] [place] [address], [address] [place] [address], Wood [employer] Supervisor: Geovani Gutiérrez MD [facility] Collection Date/Time: [facility] Results Received Date/Time: [facility] Reported Date/Time: Performed By: #### 4 2A, 7573, 85156 #### [facility] Default [address] [place] [address] WBC (Bld) [#/Vol] 5.9 10*3/uL Normal 3.8-10.8 [facility] Comment on above: Order Comment: [facility] Testing performed at: Major Aide, [employer] [facility], [address] , [address] [place] [address], [address] [place] [address], Wood [employer] Supervisor: Geovani Gutiérrez MD [facility] Collection Date/Time: [facility] Results Received Date/Time: [facility] Reported Date/Time: Performed By: #### 4 2A, 6655, 47200 #### [facility] Default [address] [place] [address] Q - IRON AND TOTAL IRON BIND ING CAPACITYon 10-12-2021 % SATURATION 64 % (calc) High 16-45 [facility] Specialist Comment on above: Order Comment: [facility] performed at: Major Aide, [employer] [facility], [address] , [address] [place] [address], [address] [place] [address], Wood Boat Builder Supervisor: Geovani Gutiérrez MD [facility] Collection Date/Time: [facility] Results Received Date/Time: [facility] Reported Date/Time: Performed By: #### 4 2A, 7573, 90441 #### [facility] Default [address] [place] [address] FE 163 mcg/dL Normal 40-190 [facility] Specialist Comment on above: Order Comment: [facility] performed at: Major Aide, [employer] [facility], [address] , [address] [place] [address], [phone], [employer] Supervisor: Geovani Gutiérrez MD [facility] Collection Date/Time: [facility] Results Received Date/Time: [facility] Reported Date/Time: Performed By: #### 4 2A, 4090, 65689 #### [facility] Default [address] [place] [address] IRON BINDING CAPACITY 254 mcg/dL (calc) Normal 250-450 [facility] Specialist Comment on above: Order Comment: [facility] performed at: Major Aide, [employer] [facility], [address] , [address] [place] [address], [phone], [employer] Supervisor: Geovani Gutiérrez MD [facility] Collection Date/Time: [facility] Results Received Date/Time: [facility] Reported Date/Time: Performed By: #### 4 2A, 7493, 72680 #### [facility] Default [address] [place] [address] Q - TSH WITH REFLEX TO FREE T4on 10-12-2021 TSH W/REFLEX TO FT4 1.58 mIU/L Normal [facility] Consultant In Ergonomics And Safety Comment on above: Order Comment: [facility] performed at: [facility], [address] [facility], [address] [facility], [place], [address], Wood [employer] Supervisor: Geovani Gutiérrez MD [facility] Collection Date/Time: [facility] Results Received Date/Time: [facility] Reported Date/Time: Result Comment: Refe rence Range > or = 20 Years 0.40-4.50 Ranges First trimester 0.26-2.66 Second trimester 0.55-2.73 Third trimester 0.43-2.91 Performed By: #### 4 2A, 7573, 39186 #### [facility] Default [address] [address] CBCon 01-03-2021 Erythrocyte distribution width (RBC) [Ratio] 14.9 % High 11.8-14.4 [facility] Comment on above: Performed By: #### C BC #### [facility] [address] [place] [address] [place] [address] Applications Engineer Manufacturing: Dao Dumont MD Hematocrit (Bld) [Volume fraction] 27.3 % Low 36.3-47.1 [facility] Comment on above: Performed By: #### C BC #### [address] [place] [address] Applications Engineer Manufacturing: Dao Dumont MD Hemoglobin (Bld) [Mass/Vol] 8.6 g/dL Low 11.9-15.1 [facility] Comment on above: Performed By: #### C BC #### [address] [place] [address] Applications Engineer Manufacturing: Dao Dumont MD MCH (RBC) [Entitic mass] 28.8 pg Normal 25.2-33.5 [facility] Comment on above: Performed By: #### C BC #### [address] [place], [place] [id number] Applications Engineer Manufacturing: Dao Dumont MD MCHC (RBC) [Mass/Vol] 31.5 g/dL Normal 28.4-34.8 [facility] Comment on above: Performed By: #### C BC #### [address] [place], [place] [id number] [employer] Engineer Manufacturing: Dao Dumont MD MCV (RBC) [Entitic vol] 91.3 fL Normal 82.6-102.9 [facility] Comment on above: Performed By: #### C BC #### [address] [place], [place] [id number] Applications Engineer Manufacturing: Dao Dumont MD NRBC Automated 0.0 per 100 WBC Normal 0.0 [facility] Comment on above: Performed By: #### C BC #### [address] [place], [place] [address] Applications Engineer Manufacturing: Dao Dumont MD Platelet mean volume (Bld) [Entitic vol] 9.2 fL Normal 8.1-13.5 [facility] Comment on above: Performed By: #### C BC #### [address] [place], [place] [id number] Applications Engineer Manufacturing: Dao Dumont MD Platelets (Bld) [#/Vol] 236 10*3/uL Normal 138-453 [facility] Comment on above: Performed By: #### C BC #### [address] [place], [place] [id number] Applications Engineer Manufacturing: Dao Dumont MD RBC (Bld) [#/Vol] 2.99 10*6/uL Low 3.95-5.11 [facility] Comment on above: Performed By: #### C BC #### [address] [place] [address] Applications Engineer Manufacturing: Dao Dumont MD WBC (Bld) [#/Vol] 13.6 10*3/uL High 3.5-11.3 [facility] Comment on above: Performed By: #### C BC #### [facility] [address] [place] [address] Applications Engineer Manufacturing: Dao Dumont MD CBCOrdered By: Kenyon Vora on 01-03-2021 Hematocrit (Bld) [Volume fraction] 27.3 % Low 36.3 - 47.1 % [facility] Phone: Hemoglobin.gastrointe stinal spec 1 Ql (Stl) 8.6 g/dL Low 11.9 - 15.1 g/dL [facility] Phone: Interpretation and review of laboratory results Abnormal [facility] Phone: MCH (RBC) [Entitic mass] 28.8 pg 25.2 - 33.5 pg [facility] Phone: MCHC (RBC) [Mass/Vol] 31.5 g/dL 28.4 - 34.8 g/dL [facility] Phone: MCV (RBC) [Entitic vol] 91.3 fL 82.6 - 102.9 fL [facility] Phone: NRBC Automated 0.0 0.0 per 100 WBC [facility] Phone: Platelet distribution width (Bld) [Ratio] 14.9 % High 11.8 - 14.4 % [facility] Phone: Platelet mean volume (Bld) [Entitic vol] 9.2 fL 8.1 - 13.5 fL [facility] Phone: Platelets (Bld) [#/Vol] 236 10*3/uL [facility] Phone: RBC (Bld) [#/Vol] 2.99 10*6/uL Low 3.95 - 5.11 m/uL [facility] Phone: WBC (Bld) [#/Vol] 13.6 10*3/uL High [facility] Phone: [facility] Phone: RhIg Workup (RhoGam)on 01-03 RhIg Workup (RhoGam) Blood Component Typ e MANUFACTURED PRODUCT Units Ordered 1 ABO/Rh(D) O NEGATIVE Antibody Screen POSITIVE History Check NO PREVIOUS HISTORY Rhig Eligibility Patient Is A Candidate For Injection Jeri NEGATIVE Du Antigen NOT TESTED Antibody Ident Anti-D, Passive Due To RhIG Unit Number [id number] Blood Component Type RHIG Unit Division 00 Status of Unit TRANSFUSED Transfusion Status OK TO TRANSFUSE Normal [facility] Comment on above: Performed By: #### R HIGW #### [facility] [address] [place] [address] Applications Engineer Manufacturing: Dao Dumont MD COVID-19, RapidOrdered By: Larisa Vora on 01-02-2021 SARS-CoV-2 (COVID-19) RNA TIMOTHY+probe Ql (Unsp spec) Not detected Not Detected [facility] Phone: Comment on above: Rapid NAAT: The specimen is NEGATIVE for SARS-CoV-2, the novel coronavirus associated with COVID-19. The ID NOW COVID-19 assay is designed to detect the virus that causes COVID-19 in patients with signs and symptoms of infection who are suspected of COVID-19. An individual without symptoms of COVID-19 and who is not shedding SARS-CoV-2 virus would expect to have a negative (not detected) result in this assay. Negative results should be treated as presumptive and, if inconsistent with clinical signs and symptoms or necessary for patient management, should be tested with an alternative molecular assay. Negative results do not preclude SARS-CoV-2 infection and should not be used as the sole basis for patient management decisions. Fact sheet for Healthcare Providers: https://www.fda.gov/media/618082/download Fact sheet for Patients: https://www.fda.gov/media/342959/download Methodology: Isothermal Nucleic Acid Amplification Specimen Description .NASOPHARYNGEAL SWAB [facility] Phone: [facility] Phone: [id number] 01-02-2021 SARS-CoV-2 (COVID-19) RNA TIMOTHY+probe Ql (Unsp spec) Not detected Normal NOTDET [facility] Comment on above: Result Comment: Rapid NAAT: The specimen is NEGATIVE for SARS-CoV-2, the novel coronavirus associated with COVID-19. The ID NOW COVID-19 assay is designed to detect the virus that causes COVID-19 in patients with signs and symptoms of infection who are suspected of COVID-19. An individual without symptoms of COVID-19 and who is not shedding SARS-CoV-2 virus would expect to have a negative (not detected) result in this assay. Negative results should be treated as presumptive and, if inconsistent with clinical signs and symptoms or necessary for patient management, should be tested with an alternative molecular assay. Negative results do not preclude SARS-CoV-2 infection and should not be used as the sole basis for patient management decisions. Fact sheet for Healthcare Providers: https://www.fda.gov/media/652335/download Fact sheet for Patients: https://www.fda.gov/media/559700/download Methodology: Isothermal Nucleic Acid Amplification Performed By: #### C OVRB #### [facility] [address] [place] [address] Applications Engineer Manufacturing: Dao Dumont MD CBC auto differentialOrdered By: Kenyon Vora on 01-01-2021 Absolute Eos # 0.07 [facility] Phone: Absolute Immature Granulocyte 0.05 [facility] Phone: Absolute Lymph # 2.05 [facility] Phone: Absolute [place] # 0.79 [facility] Phone: Basophils (Bld) [#/Vol] 0.04 10*3/uL [facility] Phone: [phone] Basophils/100 WBC (Bld) 0 % 0 - 2 % [facility] Phone: Differential Type NOT REPORTED [facility] Phone: Eosinophils/100 WBC (Bld) 1 % 1 - 4 % [facility] Phone: Hematocrit (Bld) [Volume fraction] 31.9 % Low 36.3 - 47.1 % [facility] Phone: Hemoglobin.gastrointe stinal spec 1 Ql (Stl) 10.2 g/dL Low 11.9 - 15.1 g/dL [facility] Phone: Immature granulocytes/100 WBC (Bld) 1 % High 0 [facility] Phone: Interpretation and review of laboratory results Abnormal [facility] Phone: Lymphocytes/100 WBC (Bld) 21 % Low 24 - 43 % [facility] Phone: MCH (RBC) [Entitic mass] 28.7 pg 25.2 - 33.5 pg [facility] Phone: MCHC (RBC) [Mass/Vol] 32.0 g/dL 28.4 - 34.8 g/dL [facility] Phone: MCV (RBC) [Entitic vol] 89.9 fL 82.6 - 102.9 fL [facility] Phone: Monocytes/100 WBC (Bld) 8 % 3 - 12 % [facility] Phone: NRBC Automated 0.0 0.0 per 100 WBC [facility] Phone: Platelet distribution width (Bld) [Ratio] 14.7 % High 11.8 - 14.4 % [facility] Phone: Platelet Estimate NOT REPORTED [facility] Phone: Platelet mean volume (Bld) [Entitic vol] 9.1 fL 8.1 - 13.5 fL [facility] Phone: [phone] Platelets (Bld) [#/Vol] 256 10*3/uL [facility] Phone: RBC (Bld) [#/Vol] 3.55 10*6/uL Low 3.95 - 5.11 m/uL [facility] Phone: RBC (Bld) [#/Vol] NOT REPORTED [facility] Phone: Segmented neutrophils/100 WBC (Bld) 69 % High 36 - 65 % [facility] Phone: Segs Absolute 6.98 [facility] Phone: WBC (Bld) [#/Vol] 10.0 10*3/uL [facility] Phone: WBC (Bld) [#/Vol] NOT REPORTED [facility] Phone: [facility] Phone: CBC with Diffon 01-01-2021 Abs. Basophil 0.04 k/uL Normal 0.00-0.20 [facility] Comment on above: Performed By: #### C DP #### [address] [place] [address] Applications Engineer Manufacturing: Dao Dumont MD Abs.Imm.Granulocyte 0.05 k/uL Normal 0.00-0.30 [facility] Comment on above: Performed By: #### C DP #### [address] [place] [address] Applications Engineer Manufacturing: Dao Dumont MD Abs.Neutrophil (Seg) 6.98 k/uL Normal 1.50-8.10 [facility] Comment on above: Performed By: #### C DP #### [facility] [address] [place], [place] [id number] [employer] Manufacturing: Dao Dumont MD Basophils/100 WBC (Bld) 0 % Normal 0-2 [facility] Comment on above: Performed By: #### C DP #### [facility] [address] [place] [address] [place] [place], [place] [id number] Applications Engineer Manufacturing: Dao Dumont MD Eosinophils (Bld) [#/Vol] 0.07 10*3/uL Normal 0.00-0.44 [facility] Comment on above: Performed By: #### C DP #### [address] [place], [facility]83 Applications Engineer Manufacturing: Dao Dumont MD Eosinophils/100 WBC (Bld) 1 % Normal 1-4 [facility] Comment on above: Performed By: #### C DP #### [address] [place], [facility]83 [employer] Engineer Manufacturing: Dao Dumont MD Erythrocyte distribution width (RBC) [Ratio] 14.7 % High 11.8-14.4 [facility] Comment on above: Performed By: #### C DP #### [address] [place], [place] [id number] Applications Engineer Manufacturing: Dao Dumont MD Hematocrit (Bld) [Volume fraction] 31.9 % Low 36.3-47.1 [facility] Comment on above: Performed By: #### C DP #### [address] [place], [facility]83 Applications Engineer Manufacturing: Dao Dumont MD Hemoglobin (Bld) [Mass/Vol] 10.2 g/dL Low 11.9-15.1 [facility] Comment on above: Performed By: #### C DP #### [address] [place] [address] [employer] Engineer Manufacturing: Dao Dumont MD Immature granulocytes/100 WBC (Bld) 1 % High 0 [facility] Comment on above: Performed By: #### C DP #### [facility] [address] [place], [facility]83 Applications Engineer Manufacturing: Dao Dumont MD Lymphocytes (Bld) [#/Vol] 2.05 10*3/uL Normal 1.10-3.70 [facility] Comment on above: Performed By: #### C DP #### [facility] [address] [place], [facility]83 [employer] Engineer Manufacturing: Dao Dumont MD Lymphocytes/100 WBC (Bld) 21 % Low 24-43 [facility] Comment on above: Performed By: #### C DP #### [address] [place], [facility] Applications Engineer Manufacturing: Dao Dumont MD MCH (RBC) [Entitic mass] 28.7 pg Normal 25.2-33.5 [facility] Comment on above: Performed By: #### C DP #### [address] [place], [facility]83 Applications Engineer Manufacturing: Dao Dumont MD MCHC (RBC) [Mass/Vol] 32.0 g/dL Normal 28.4-34.8 [facility] Comment on above: Performed By: #### C DP #### [address] [place], [facility]83 Applications Engineer Manufacturing: Dao Dumont MD MCV (RBC) [Entitic vol] 89.9 fL Normal 82.6-102.9 [facility] Comment on above: Performed By: #### C DP #### [address] [place] [address] Applications Engineer Manufacturing: Dao Dumont MD Monocytes (Bld) [#/Vol] 0.79 10*3/uL Normal 0.10-1.20 [facility] Comment on above: Performed By: #### C DP #### [facility] [address] [place], [place] [id number] Applications Engineer Manufacturing: Dao Dumont MD Monocytes/100 WBC (Bld) 8 % Normal 3-12 [facility] Comment on above: Performed By: #### C DP #### [facility] [address] [place], [place] [id number] Applications Engineer Manufacturing: Dao Dumont MD Neutrophil (Seg) 69 % High 36-65 [facility] Comment on above: Performed By: #### C DP #### [facility] [address] [place], [place] [id number] Applications Engineer Manufacturing: Dao Dumont MD NRBC Automated 0.0 per 100 WBC Normal 0.0 [facility] Comment on above: Performed By: #### C DP #### [facility] [address] [place], [facility] Applications Engineer Manufacturing: Dao Dumont MD Platelet mean volume (Bld) [Entitic vol] 9.1 fL Normal 8.1-13.5 [facility] Comment on above: Performed By: #### C DP #### [address] [place], [place] [id number] Applications Engineer Manufacturing: Dao Dumont MD Platelets (Bld) [#/Vol] 256 10*3/uL Normal 138-453 [facility] Comment on above: Performed By: #### C DP #### [facility] [address] [place], [place] [id number] Applications Engineer Manufacturing: Dao Dumont MD RBC (Bld) [#/Vol] 3.55 10*6/uL Low 3.95-5.11 [facility] Comment on above: Performed By: #### C DP #### [facility] [address] [place] [address] Dr[address] [place], [place] [id number] Applications Engineer Manufacturing: Dao Dumont MD WBC (Bld) [#/Vol] 10.0 10*3/uL Normal 3.5-11.3 [facility] Comment on above: Performed By: #### C DP #### [facility] [address] [place], [place] [address] Applications Engineer Manufacturing: Dao Dumont MD Auto Diff Performed NOT REPORTED Normal [facility] Comment on above: Performed By: #### C DP #### [facility] [address] [place], [facility]83 Applications Engineer Manufacturing: Dao Dumont MD Platelet Estimate NOT REPORTED Normal [facility] Comment on above: Performed By: #### C DP #### [facility] [address] [place] [address] Applications Engineer Manufacturing: Dao Dumont MD RBC morphology finding Nom (Bld) NOT REPORTED Normal [facility] Comment on above: Performed By: #### C DP #### [facility] [address] [place], [facility]83 Applications Engineer Manufacturing: Dao Dumont MD WBC Morphology NOT REPORTED Normal [facility] Comment on above: Performed By: #### C DP #### [facility] [address] [place], [facility]83 Applications Engineer Manufacturing: Dao Dumont MD DRUG SCREEN MULTI URINEOrder ed By: Kenyon Vora on 01-01-2021 Amphetamine Screen, Ur Negative NEGATIVE [facility] Work Phone: Barbiturate Screen, Ur Negative NEGATIVE [facility] Work Phone: Benzodiazepine Screen, Urine Negative NEGATIVE [facility] Work Phone: Buprenorphine Urine Positive Abnormal NEGATIVE [facility] Work Phone: Cannabinoid Scrn, Ur Negative NEGATIVE [employer] Work Phone: Cocaine Metabolite, Urine Negative NEGATIVE [facility] Work Phone: Interpretation and review of laboratory results Abnormal [facility] Work Phone: MDMA, Urine NOT REPORTED NEGATIVE [facility] Phone: Methadone Screen, Urine Negative NEGATIVE [employer] Work Phone: Methamphetamine, Urine Negative NEGATIVE [employer] Work Phone: Opiates, Urine Negative NEGATIVE [employer] Work Phone: Oxycodone Screen, Ur Negative NEGATIVE [employer] Work Phone: Phencyclidine, Urine Negative NEGATIVE [employer] Work Phone: Propoxyphene, Urine Negative NEGATIVE [employer] Work Phone: Test Information NOT REPORTED [facility] Phone: Tricyclic Antidepressants, Urine Negative NEGATIVE [facility] Phone: Comment on above: Drug screen results are to be used for medical purposes only. All positive results are unconfirmed. Testing for employment or legal uses should be sent to a reference laboratory for confirmation. [facility] Phone: Drug Scr, Abuse, Uron 2020 Amphetamine(s),Ur Negative Normal NEG [facility] Comment on above: Performed By: #### D AU #### [facility] [address] [place] [address] Applications Engineer Manufacturing: Dao Dumont MD Barbiturate(s),Ur Negative Normal NEG [facility] Comment on above: Performed By: #### D AU #### [facility] [address] [place] [address] Applications Engineer Manufacturing: Dao Dumont MD Benzodiazepine(s) Negative Normal NEG [facility] Comment on above: Performed By: #### D AU #### [facility] [address] [place] [address] Applications Engineer Manufacturing: Dao Dumont MD Buprenorphrine, Ur Positive Abnormal NEG [facility] Comment on above: Performed By: #### D AU #### [facility] [address] [place], [place] [id number] Applications Engineer Manufacturing: Dao Dumont MD Cannabinoid(s),Ur Negative Normal [facility] Comment on above: Performed By: #### D AU #### [facility] [address] [place], [facility] Applications Engineer Manufacturing: Dao Dumont MD Cocaine Metabolite Negative Normal [facility] Comment on above: Performed By: #### D AU #### [facility] [address] [place] [id number] Applications Engineer Manufacturing: Dao Dumont MD Methadone Ql (U) Negative Normal [facility] Comment on above: Performed By: #### D AU #### [facility] [address] [place], [facility] Applications Engineer Manufacturing: Dao Dumont MD Methamphetamine, Ur Negative Normal [facility] Comment on above: Performed By: #### D AU #### [facility] [address] [place] [id number] Applications Engineer Manufacturing: Dao Dumont MD Opiate(s), Ur Negative Normal [facility] Comment on above: Performed By: #### D AU #### [facility] [address] [place], [facility] Applications Engineer Manufacturing: Dao Dumont MD Oxycodone, Urine Negative Normal [facility] Comment on above: Performed By: #### D AU #### [facility] [address] [place] [id number] Applications Engineer Manufacturing: Dao Dumont MD Phencyclidine, Ur Negative Normal [facility] Comment on above: Performed By: #### D AU #### [facility] [address] [place], [facility]83 Applications Engineer Manufacturing: Dao Dumont MD Propoxyphene,Urine Negative Normal NEG [facility] Comment on above: Performed By: #### D AU #### [facility] [address] [place] [address] Applications Engineer Manufacturing: Dao Dumont MD Tricyclic antidepressants Screen Ql (U) Negative Normal NEG [facility] Comment on above: Result Comment: Drug screen results are to be used for medical purposes only. All positive results are unconfirmed. Testing for employment or legal uses should be sent to a reference laboratory for confirmation. Performed By: #### D AU #### [facility] [address] [place], [place] [id number] Applications Engineer Manufacturing: Dao Dumont MD Interpretive Info NOT REPORTED Normal [facility] Comment on above: Performed By: #### D AU #### [facility] [address] [place], [place] [id number] Applications Engineer Manufacturing: Dao Dumont MD MDMA, Urine NOT REPORTED Normal NEG [facility] Comment on above: Performed By: #### D AU #### [facility] [address] [place], [place] [id number] Applications Engineer Manufacturing: Dao Dumont MD GBS, External ResultOrdered By: Historical Provider on 12-07-2020 GBS, External Result Negative [facility] [employer] Phone: Comment on above: Yuni Diamond RN/verified with Yenni Hauser RN [facility] Phone: C. Trachomatis, External Res ultOrdered By: Historical Provider on 09-13-2020 C. Trachomatis, External Result Not detected [facility] Phone: Comment on above: Yuni Diamond RN/verified with Yenni Hauser RN N. Gonorrhoeae, External Res ultOrdered By: Historical Provider on 09-13-2020 N. Gonorrhoeae, External Result Not detected [facility] Phone: Comment on above: R Madeline RN/verified with Yenni Hauser RN No Panel InformationOrdered By: Historical Provider on 09-13-2020 [facility] Phone: ABO, External ResultOrdered By: Historical Provider on 07-08-2020 ABO, External Result O [facility] [employer] Phone: Comment on above: Yuni Diamond RN/verified with Yenni Hauser RN HIV, External ResultOrdered By: Historical Provider on 07-08-2020 HIV, External Result Non-Reactive [employer] Phone: Comment on above: Yuni Diamond RN/verified with Yenni Hauser RN Hepatitis B, External Result Ordered By: Historical Provider on 07-08-2020 Hep B, External Result Non-Reactive [facility] Phone: Comment on above: Yuni Diamond RN/verified with Yenni Hauser RN No Panel InformationOrdered By: Historical Provider on 07-08-2020 [facility] Phone: RPR, External LabOrdered By: Historical Provider on 07-08-2020 RPR, External Result Non-Reactive [facility] [employer] Phone: Comment on above: Yuni Diamond RN/verified with Yenni Hauser RN Rh Factor, External ResultOr dered By: Historical Provider on 07-08-2020 Rh Factor, External Result Negative [facility] Phone: Comment on above: Yuni Diamond RN/verified with Yenni Hauser RN Rubella Titer, External Resu ltOrdered By: Historical Provider on 07-08-2020 Rubella Titer, External Result immune [facility] Phone: Comment on above: Yuni Diamond RN/verified with Yenni Hauser RN CULTURE THROATon 12-13-2018 CULTURE THROAT Isolate 1 Haemophilus influenzae - Beta lactamase negative Heavy growth of Normal [facility] Comment on above: Performed By: #### S SCRN, THRTCX #### [facility] [address] [address] [place] STREPT SCREENon 12-13-2018 STREP SCREEN A Negative Normal NEGATIVE [facility] Comment on above: Performed By: #### S SCRN, THRTCX #### [facility] [address] [id number] [place] Coding Summary.on 11-22-2017 Coding Summary. CODING DATE: FINAL [facility] STATUS: Home (Routine DC) PAYOR: Medicaid EAPG DESCRIPTION 0394 LEVEL I IMMUNOLOGY TESTS 0393 BLOOD AND TISSUE TYPING 0408 LEVEL I HEMATOLOGY TESTS ADMIT DX: REASON FOR VISIT DX: Z34.00 Encounter for supervision of normal first , unspecified trimester FINAL DX: PRINCIPAL: Z34.00 Encounter for supervision of normal first , unspecified trimester SECONDARY: Z3A.01 Less than 8 weeks gestation of PYMT PROC EAPG STAT DESCRIPTION DOCTOR NAME DATE NOTE: The code number assigned matches the documented diagnosis and / or procedure in the patient's chart. However, the narrative phrase printed from the coding software may appear abbreviated, or result in slightly different terminology. Revised Coded By: Chata Harris Revised Date Saved: 11/22/2017 11:11 am Normal [facility] Coding Summary.on 11-19-2017 Coding Summary. CODING DATE: FINAL [facility] STATUS: Home (Routine DC) PAYOR: Medicaid EA DESCRIPTION 0496 MINOR PHARMACOTHERAPY 0408 LEVEL I HEMATOLOGY TESTS 0396 LEVEL I MICROBIOLOGY TESTS 0398 LEVEL I ENDOCRINOLOGY TESTS 0457 VENIPUNCTURE 0403 ORGAN OR DISEASE ORIENTED PANELS 0395 LEVEL II IMMUNOLOGY TESTS 0765 OTHER ANTEPARTUM DIAGNOSES 0490 INCIDENTAL TO MEDICAL, SIGNIFICANT PROCEDURE OR THERAPY VISIT 0111 PHARMACOTHERAPY EXCEPT BY EXTENDED INFUSION ADMIT DX: REASON FOR VISIT DX: R11.10 Vomiting, unspecified FINAL DX: PRINCIPAL: O21.9 Vomiting of , unspecified SECONDARY: O99.330 Smoking (tobacco) complicating , unspecified trimester O99.89 Other specified diseases and conditions complicating , childbirth and the puerperium Z88.6 Allergy status to analgesic agent status Z3A.00 Weeks of gestation of not specified Z3A.01 Less than 8 weeks gestation of PYMT PROC EAPG STAT DESCRIPTION DOCTOR NAME DATE NOTE: The code number assigned matches the documented diagnosis and / or procedure in the patient's chart. However, the narrative phrase printed from the coding software may appear abbreviated, or result in slightly different terminology. Coded By: Carolann Stubbs Date Saved: 11/19/2017 04:35 pm [facility] Coding Summary. CODING DATE: 018 FINAL [facility] STATUS: Home (Routine DC) PAYOR: Medicaid EAPG DESCRIPTION 0496 MINOR PHARMACOTHERAPY 0408 LEVEL I HEMATOLOGY TESTS 0396 LEVEL I MICROBIOLOGY TESTS 0398 LEVEL I ENDOCRINOLOGY TESTS 0457 VENIPUNCTURE 0403 ORGAN OR DISEASE ORIENTED PANELS 0395 LEVEL II IMMUNOLOGY TESTS ADMIT DX: REASON FOR VISIT DX: R11.10 Vomiting, unspecified FINAL DX: PRINCIPAL: O21.9 Vomiting of , unspecified SECONDARY: O99.330 Smoking (tobacco) complicating , unspecified trimester O99.89 Other specified diseases and conditions complicating , childbirth and the puerperium Z88.6 Allergy status to analgesic agent status Z3A.00 Weeks of gestation of not specified PYMT PROC EAPG STAT DESCRIPTION DOCTOR NAME DATE NOTE: The code number assigned matches the documented diagnosis and / or procedure in the patient's chart. However, the narrative phrase printed from the coding software may appear abbreviated, or result in slightly different terminology. Coded By: Heike Sigala Date Saved: 11/05/2017 10:15 am [facility] C Strep Screenon 11-02-2017 Strep Screen MicrobiologyPROCEDUR E: Strep Screen Culture [R1]SOURCE: Swab BODY SITE:COLLECTED DATE/TIME: 10/31/2017 11:58 EDT RECEIVED DATE/TIME: 10/31/2017 15:12 EDTSTART DATE/TIME: 10/31/2017 15:12 EDT FREE TEXT SOURCE:Black Mcgrath PA-C, PA-C, Todd DFINAL REPORTSFinal Report [] Verified Date/Time: 11/02/2017 10:12 EDTNo Pathogenic Streptococcus IsolatedPerforming LocationsR1: This test [facility] performed at: [facility], [address] [place] [address], [id number] [phone] [facility] Comment on above: Performed By: #### 1 [id number], [id number] ####[facility] [address] [place] [address] ED Note-Physicianon 11-03-19 18 ED Note-Physician Basic Information Ti me Seen: Alcides DUARTE, Black Persaud 10/31/2017 11:30Chief Complaint pt states sent here by dr hall for vomiting for approx 1 1/2wks, states currently but unsure how far along LMP middle of august History of Present Illness 17-year-old white female presents emergency room with concerns of being dehydrated, nausea, vomiting and currently being treated by Dr. Hall for . She denies any vaginal bleeding or cramping. She was referred here for IV fluids by him. Patient has body aches associated with her symptoms. She been taking Zofran at home with no improvement. This is patient's first .Review of Systems Constitutional: no fever, no chills, no sweats, moderate weakness Respiratory: no shortness of breath, no cough, no orthopnea, no wheezing Cardiovascular: no chest pain, no palpitations, no edema Gastrointestinal: Nausea, vomiting Additional ROS info: Except as noted in the above Review of Systems and in the History of Present Illness all other systems have been reviewed and are negative or noncontributory.Physical Exam Vitals & Measurements T: 36.7 ?C (Oral) RR: 16 BP: 117/68 SpO2: 99% HT: 163 cm WT: 80.4 kg BMI: 30.26 General: Alert and oriented, No acute distress, Comfortable in bed. Eye: Pupils are equal, round and reactive to light, Extraocular movements are intact. HENT: Normocephalic. + Pharyngeal Swelling and moderate Tonsillar Enlargement, Nose Patent, no discharge, Neck: Supple, Non-tender, No jugular venous distention No Cervical Lymphadenopathy.. Respiratory: Respirations are non-labored, Symmetrical chest wall expansion, No chest wall tenderness, no wheezing rhonchi rales or rubs noted.. Cardiovascular: Normal rate, Regular rhythm, Good pulses equal in all extremities. Gastrointestinal: Soft, Non-tender, Non-distended, Normal bowel sounds. Musculoskeletal: Normal range of motion, Normal strength. Neurologic: Alert, Oriented, Normal sensory, Normal motor function. Cognition and Speech: Oriented, Speech clear and coherent. Psychiatric: Cooperative, Appropriate mood & affect. Integumentary: Warm, Dry, PinkReexamination/Reevaluat ion Patient is improved significantly and would like to be dischargedAssessment/Plan Patient is improved. She has been able to sleep. There may be discharged. Patient would like to have prescription for prescription for same type medication Emesis, persistent Disposition Plan Patient Discharge Condition Stable and improved Discharge Disposition she will follow-up with [facility] [employer] [facility] TECHNICIAN and take Phenergan as needed for nausea, vomiting Discharge Prescription List Prescriptions promethazine 25 mg Tab, 25 mg= 1 tab(s), Oral, q6hr Follow-up With When Contact Information Mike Hall In 3 days 11/03/2017 EDT [address] [place] [address]- Business (1) Additional Instructions: Call for recheck and take Promethazine as needed Patient Education Nausea and VomitingAttestation Dr Landaverde has been informed about evaluation and treatment of patient during this visit. This report was transcribed using voice recognition software. Every effort was made to ensure accuracy, however, inadvertently computerized hydrographic engineer mistakes may be present. Patient was treated and evaluated by the physician environmental emergencies assistant. The attending physician was in the emergency department at all times and supervised care. The case was discussed with the attending physician and diagnostics were reviewed as neededProblem List/Past Medical History Ongoing No qualifying data Historical No qualifying dataMedications Inpatient NS 1000 ml Bolus 1,000 mL, 1000 mL, IV Piggyback Home promethazine 25 mg Tab, 25 mg= 1 tab(s), Oral, q6hr Prozac, Oral, Daily, Not taking Seroquel, Oral, Not takingAllergies Motrin (hives) Tylenol Extra Strength EZ (hives)Social History Tobacco 10 or more cigarettes (1/2 pack or more)/day in last 30 days Tobacco Use:. Ready to change: Yes., 10/31/2017Lab Results WBC: 10.1 E9/L (10/31/17 11:54:00) RBC: 4.6 E12/L (10/31/17 11:54:00) Hgb: 13.6 gm/dL (10/31/17 11:54:00) Hct: 39.4 % (10/31/17 11:54:00) MCV: 85.4 fL (10/31/17 11:54:00) MCH: 29.6 pg (10/31/17 11:54:00) MCHC: 34.6 gm/dL (10/31/17 11:54:00) RDW: 14 % (10/31/17 11:54:00) Platelet: 312 E9/L (10/31/17 11:54:00) MPV: 7.4 fL (10/31/17 11:54:00) Neutro Auto: 77.9 % High (10/31/17 11:54:00) Lymph Auto: 14.7 % (10/31/17 11:54:00) [place] Auto: 6.7 % (10/31/17 11:54:00) Eos Auto: 0.2 % (10/31/17 11:54:00) Basophil Auto: 0.5 % (10/31/17 11:54:00) Neutro Absolute: 7.9 E9/L High (10/31/17 11:54:00) Lymph Absolute: 1.5 E9/L (10/31/17 11:54:00) [place] Absolute: 0.7 E9/L (10/31/17 11:54:00) Eos Absolute: 0 E9/L (10/31/17 11:54:00) Basophil Absolute: 0.1 E9/L (10/31/17 11:54:00) Glucose Lvl: 90 mg/dL (10/31/17 13:09:00) BUN: 5 mg/dL (10/31/17 13:09:00) Creatinine: 0.6 mg/dL (10/31/17 13:09:00) eGFR: >60 (10/31/17 13:09:00) eGFR AA: >60 (10/31/17 13:09:00) BUN/Creat Ratio: 8 Low (10/31/17 13:09:00) Sodium Lvl: 135 mmol/L (10/31/17 13:09:00) Potassium Lvl: 3.7 mmol/L (10/31/17 13:09:00) Chloride: 106 mmol/L (10/31/17 13:09:00) CO2: 22 mmol/L (10/31/17 13:09:00) AGAP: 11 mEq/L (10/31/17 13:09:00) Calcium Lvl: 8.6 mg/dL Low (10/31/17 13:09:00) Beta hCG Qnt: 13224 mIU/mL High (10/31/17 11:54:00) Rapid Strep: NEGATIVE1 (10/31/17 11:58:00)Diagnostic Results No qualifying data available. Normal [facility] Comment on above: Result Comment: Elec tronically Signed By: Black Mcgrath PA-C\.br\Date and Time Signed: 10/31/17 14:56 EDT\.br\Electronically Co-Signed By: Parul Landaverde M.D.\.br\Date and Time Co-Signed: 11/02/17 07:54 EDT Hep Bs Agon 11-02-2017 Hepatitis B antigen presence Negative Invalid Interpretation Code Negative [facility] Comment on above: Result Comment: Perf ormed at: [facility] [id number] [place], [place] [id number] PhD Laura Etienne Performed By: #### 2 [id number], [id number] ####[address] [place] [address] RPRon 11-01-2017 Reagin antibody presence Non-Reactive Normal Non-Reacti ve [facility] Comment on above: Performed By: #### 2 [id number], [id number] ####[address] [place] [address] Rubella Abon 11-01-2017 Rubella Ab Positive Normal Positive [facility] Comment on above: Performed By: #### 2 [id number], [id number] ####[facility] [address] [place] [address] ABO/Rhon 10-31-2017 ABO/Rh Negative Invalid Interpretation Code [facility] Comment on above: Performed By: #### 2 [id number], [id number] ####[facility] [address] [place] [address] ABSCon 10-31-2017 ABSC Gel Interp Negative Normal [facility] Comment on above: Performed By: #### 2 [id number], [id number] ####[address] [place] [id number] Auto Diffon 10-31-2017 Basophils Auto #/vol (Bld) 0.5 % Normal 0.0-2.0 [facility] Comment on above: Order Comment: Order Added by Discern Expert. Performed By: #### 2 [id number], [id number] ####[address] [address] Basophils Auto #/vol (Bld) 0.1 E9/L Normal 0.0-0.2 [facility] Comment on above: Order Comment: Order Added by Discern Expert. Performed By: #### 2 [id number], [id number] ####[address] [address] Eosinophils 0.0 E9/L Normal 0.0-0.5 [facility] Comment on above: Order Comment: Order Added by Krysten Expert. Performed By: #### 2 [id number], [id number] ####[address] [address] Eosinophils/100 leukocytes 0.2 % Normal 0.0-8.0 [facility] Comment on above: Order Comment: Order Added by Krysten Expert. Performed By: #### 2 [id number], [id number] ####[address] [address] Lymphocytes 1.5 E9/L Normal 1.0-4.0 [facility] Comment on above: Order Comment: Order Added by Discern Expert. Performed By: #### 2 [id number], [id number] ####[address] [address] Lymphocytes/100 leukocytes 14.7 % Normal 14.0-50.0 [facility] Comment on above: Order Comment: Order Added by Discern Expert. Performed By: #### 2 [id number], [id number] ####[address] [address] Monocytes 0.7 E9/L Normal 0.2-1.0 [facility] Comment on above: Order Comment: Order Added by Discern Expert. Performed By: #### 2 [id number], [id number] ####[facility] [address] [place] [address] Monocytes/100 leukocytes 6.7 % Normal 4.0-14.0 [facility] Comment on above: Order Comment: Order Added by Discern Expert. Performed By: #### 2 [id number], [id number] ####[facility] [address] [place] [address] Neutrophils 7.9 E9/L High 2.0-7.5 [facility] Comment on above: Order Comment: Order Added by Discern Expert. Performed By: #### 2 590782, [id number] ####[facility] [address] [place] [address] Neutrophils/100 leukocytes 77.9 % High 36.0-75.0 [facility] Comment on above: Order Comment: Order Added by Discern Expert. Performed By: #### 2 [id number], [id number] ####[facility] [address] [place] [address] BMPon 10-31-2017 BUN/Creatinine Ratio 8 No Units Low 10-20 [facility] Comment on above: Performed By: #### 2 [id number], [id number] ####[facility] [address] [place] [address] Creatinine 0.6 mg/dL Normal 0.5-1.3 [facility] Comment on above: Performed By: #### 2 125078, [id number] ####[facility] [address] [place] [address] Urea nitrogen 5 mg/dL Normal 5-21 [facility] Comment on above: Performed By: #### 2 757370, [id number] ####[facility] [address] [place] [address] Anion gap 11 mmol/L Normal 6-16 [facility] Comment on above: Performed By: #### 2 [id number], [id number] ####[facility] [address] [place] [address] Calcium 8.6 mg/dL Low 8.9-11.1 [facility] Comment on above: Performed By: #### 2 887101, [id number] ####[facility] [address] [place] [address] Chloride 106 mmol/L Normal 101-111 [facility] Comment on above: Performed By: #### 2 896080, [id number] ####[facility] [address] [place] [address] CO2 22 mmol/L Normal 21-31 [facility] Comment on above: Performed By: #### 2 206172, [id number] ####[facility] [address] [place] [address] Glucose mass conc 90 mg/dL Normal 55-199 [facility] Comment on above: Result Comment: If t his glucose result represents a fasting glucose, interpretation should refer to the following reference range: 55-99 mg/dL Performed By: #### 2 754561, [id number] ####[facility] [address] [place] [address] Potassium molar conc 3.7 mmol/L Normal 3.5-5.3 [facility] Comment on above: Performed By: #### 2 239231, [id number] ####[facility] [address] [place] [address] Sodium 135 mmol/L Normal 135-145 [facility] Comment on above: Performed By: #### 2 640033, [id number] ####[facility] [address] [place] [address] CG Quanton 10-31-2017 [place] [address] m[IU]/mL High 1-3 [facility] Comment on above: Result Comment: GEST ATIONAL AGE HCG RANGE (mIU/mL) NON- <1-3 0.2-1 WEEKS 5-50 1-2 WEEKS 50-500 2-3 WEEKS 100-5,000 3-4 WEEKS 500-10,000 4-5 WEEKS 1,000-50,000 5-6 WEEKS 10,000-100,000 6-8 WEEKS 15,000-200,000 8-12 WEEKS 10,000-100,000 Performed By: #### 2 [id number] ####[address] [place] [address] CBC w/ Auto Diffon 8 Erythrocyte distribution width Auto Ratio (RBC) 14.0 % Normal 10.9-14.2 [facility] Comment on above: Performed By: #### 2 996610, [id number] ####[place] [address] Erythrocytes (RBC) 4.6 E12/L Normal 4.3-5.9 [facility] Comment on above: Performed By: #### 2 393802, [id number] ####[place] [address] Hematocrit (HCT) 39.4 % Normal 34.0-46.0 [facility] Comment on above: Performed By: #### 2 012583, [id number] ####[place] [id number] Hemoglobin mass conc (Bld) 13.6 g/dL Normal 12.0-16.0 [facility] Comment on above: Performed By: #### 2 327545, [id number] ####[place] [address] MCH 29.6 pg Normal 27.0-34.0 [facility] Comment on above: Performed By: #### 2 117429, [id number] ####[place] [id number] MCHC mass conc (RBC) 34.6 g/dL Normal 31.4-39.3 [facility] Comment on above: Performed By: #### 2 407535, [id number] ####[address] [address] MCV 85.4 fL Normal 80.0-100.0 [facility] Comment on above: Performed By: #### 2 435144, [id number] ####[address] [place] [address] Platelet mean volume (PMV) 7.4 fL Normal 6.4-10.8 [facility] Comment on above: Performed By: #### 2 753508, [id number] ####[facility] [address] [place] [address] Platelets 312.0 E9/L Normal 150.0-500. 0 [facility] Comment on above: Performed By: #### 2 398969, [id number] ####[address] [address] WBC (Leukocytes) 10.1 E9/L Normal 4.0-11.0 [facility] Comment on above: Performed By: #### 2 699087, [id number] ####[address] [address] CBC w/Indiceson 10-31-2017 Erythrocyte distribution width Auto Ratio (RBC) 14.2 % Normal 10.9-14.2 [facility] Comment on above: Performed By: #### 2 284723, [id number] ####[address] [address] Erythrocytes (RBC) 4.6 E12/L Normal 4.3-5.9 [facility] Comment on above: Performed By: #### 2 563357, 1327710 ####[address] [address] Hematocrit (HCT) 40.5 % Normal 34.0-46.0 [facility] Comment on above: Performed By: #### 2 988459, [id number] ####[address] [place] [address] Hemoglobin mass conc (Bld) 14.0 g/dL Normal 12.0-16.0 [facility] Comment on above: Performed By: #### 2 660092, 6508128 ####[facility] [address] [place] [address] MCH 30.2 pg Normal 27.0-34.0 [facility] Comment on above: Performed By: #### 2 285157, 0925719 ####[facility] [address] [place] [address] MCHC mass conc (RBC) 34.6 g/dL Normal 31.4-39.3 [facility] Comment on above: Performed By: #### 2 272531, 3554597 ####[facility] [address] [place] [address] MCV 87.1 fL Normal 80.0-100.0 [facility] Comment on above: Performed By: #### 2 163294, 1418404 ####[place] [id number] Platelet mean volume (PMV) 8.3 fL Normal 6.4-10.8 [facility] Comment on above: Performed By: #### 2 048546, 3394351 ####[place] [address] Platelets 314.0 E9/L Normal 150.0-500. 0 [facility] Comment on above: Performed By: #### 2 397452, 2579407 ####[place] [address] WBC (Leukocytes) 9.6 E9/L Normal 4.0-11.0 [facility] Comment on above: Performed By: #### 2 752259, [id number] ####[place] [id number] ED Clinical Summaryon 2017 ED Clinical Summary (Inserted Image. Mira ble to display) [address] [address] ED Clinical SummaryPerson Information Name: THOMAS QUIROZ/Gwyn_Boo Age: 17 Years : 2000 12:00 AM Sex: Female Language:Maori PCP: NONE, XXXX Marital Status:Single Phone: [phone] Visit Id: Visit Reason:Vomiting of ; PREG-VOMITING Speciality: Acuity: 3 Enc Type: Emergency Med Service: Emergency Arrival:10/31/2017 11:01 AM Discharge: 10/31/2017 3:07 PM LOS: 000 04:06 Checkin:10/31/2017 11:01 AM Checkout: 10/31/2017 3:07 PM Dispo Type: Home (Routine DC) EVENTS:Event Name Event Status Request Date/Time Start Date/Time Complete Date/Time Arrive Complete 10/31/2017 11:01 AM 10/31/2017 11:01 AM 10/31/2017 11:01 AM Document Home Meds Complete 10/31/2017 11:01 AM 10/31/2017 12:06 PM 10/31/2017 12:06 PM Triage Complete 10/31/2017 11:01 AM 10/31/2017 11:15 AM 10/31/2017 11:15 AM Bed Assign Complete 10/31/2017 11:15 AM 10/31/2017 11:15 AM 10/31/2017 11:[address] Exam Complete 10/31/2017 11:15 AM 10/31/2017 11:30 AM 10/31/2017 11:30 AM RN Exam Complete 10/31/2017 11:15 AM 10/31/2017 12:05 PM 10/31/2017 12:05 PM Registration Complete 10/31/2017 11:30 AM 10/31/2017 11:38 AM 10/31/2017 11:38 AM Meds Admin Complete 10/31/2017 11:35 AM 10/31/2017 1:33 PM Pending Labs Request 10/31/2017 11:35 AM Swab Inlab 10/31/2017 11:35 AM Lab Request 10/31/2017 11:35 AM Urine Collect Request 10/31/2017 11:[address] Exam Complete 10/31/2017 11:36 AM 10/31/2017 11:36 AM 10/31/2017 11:36 AM Reg Complete Request 10/31/2017 11:38 AM Reg Bed Request Complete 10/31/2017 11:38 AM 10/31/2017 11:38 AM 10/31/2017 11:38 AM Pending Labs Complete 10/31/2017 11:58 AM 10/31/2017 11:58 AM 10/31/2017 11:59 AM Lab Complete 10/31/2017 11:58 AM 10/31/2017 11:58 AM 10/31/2017 11:59 AM Pending Labs Complete 10/31/2017 12:01 PM 10/31/2017 12:01 PM 10/31/2017 12:01 PM Pending Labs Collected 10/31/2017 12:09 PM 10/31/2017 12:09 PM Lab Collected 10/31/2017 12:09 PM 10/31/2017 12:09 PM Pending Labs Complete 10/31/2017 12:59 PM 10/31/2017 1:27 PM Lab Complete 10/31/2017 12:59 PM 10/31/2017 1:27 PM Meds Admin Complete 10/31/2017 1:00 PM 10/31/2017 3:03 PM Pending Labs Complete 10/31/2017 1:13 PM 10/31/2017 1:13 PM 10/31/2017 1:27 PM Lab Complete 10/31/2017 1:13 PM 10/31/2017 1:13 PM 10/31/2017 1:27 PM Discharge Complete 10/31/2017 2:49 PM 10/31/2017 3:07 PM 10/31/2017 3:07 PM Transfer Complete 10/31/2017 3:07 PM 10/31/2017 3:07 PM 10/31/2017 3:07 PM ADDRESS:[address] [place] [phone] PHYS DOC NOTES: MEDICAL INFORMATION: Prescriptions Given:Prescription Display promethazine (promethazine 25 mg Tab) 25 mg = 1 tab(s), Oral, q6hr, No Driving or Use at Work, # 10 tab(s), Refills(s) 0 Home Meds Display fluoxetine (Prozac) Oral, Daily, Refills(s) 0 quetiapine (Seroquel) Oral, Refills(s) 0 PATIENT EDUCATION INFORMATION: Instructions:Nausea and Vomiting Follow up:With: Address: When: Mike CARUSO, [facility] [address], [place] [id number] Business (1) In 3 days 11/03/2017 Comments: Call for recheck and take Promethazine as needed DIAGNOSIS:Emesis, persistent Normal [facility] ED Patient Education Noteon 10-31-2017 ED Patient Education Note Patient Education Materials Follows:Nausea and VomitingNausea is a sick feeling that often comes before throwing up (vomiting). Vomiting is a reflex where stomach contents come out of your mouth. Vomiting can cause severe loss of body fluids (dehydration). Children and elderly adults can become dehydrated quickly, especially if they also have diarrhea. Nausea and vomiting are symptoms of a condition or disease. It is important to find the cause of your symptoms.CAUSES? Direct irritation of the stomach lining. This irritation can result from increased acid production (gastroesophageal reflux disease), infection, food poisoning, taking certain medicines (such as nonsteroidal anti-inflammatory drugs), alcohol use, or tobacco use.? Signals from the brain.?These signals could be caused by a headache, heat exposure, an inner ear disturbance, increased pressure in the brain from injury, infection, a tumor, or a concussion, pain, emotional stimulus, or metabolic problems.? An obstruction in the gastrointestinal tract (bowel obstruction).? Illnesses such as diabetes, hepatitis, gallbladder problems, appendicitis, kidney problems, cancer, sepsis, atypical symptoms of a heart attack, or eating disorders.? Medical treatments such as chemotherapy and radiation.? Receiving medicine that makes you sleep (general anesthetic) during surgery.DIAGNOSISYour caregiver may ask for tests to be done if the problems do not improve after a few days. Tests may also be done if symptoms are severe or if the reason for the nausea and vomiting is not clear. Tests may include:? Urine tests.? Blood tests.? Stool tests. ? Cultures (to look for evidence of infection).? X-rays or other imaging studies.Test results can help your caregiver make decisions about treatment or the need for additional tests.TREATMENTYou need to stay well hydrated. Drink frequently but in small amounts.?You may wish to drink water, sports drinks, clear broth, or eat frozen ice pops or gelatin dessert to help stay hydrated.?When you eat, eating slowly may help prevent nausea.?There are also some antinausea medicines that may help prevent nausea.HOME CARE INSTRUCTIONS? Take all medicine as directed by your caregiver.? If you do not have an appetite, do not force yourself to eat. However, you must continue to drink fluids.? If you have an appetite, eat a normal diet unless your caregiver tells you differently.? Eat a variety of complex carbohydrates (rice, wheat, potatoes, bread), lean meats, yogurt, fruits, and vegetables.? Avoid high-fat foods because they are more difficult to digest.? Drink enough water and fluids to keep your urine clear or pale yellow.? If you are dehydrated, ask your caregiver for specific rehydration instructions. Signs of dehydration may include:? Severe thirst.? Dry lips and mouth.? Dizziness.? Dark urine.? Decreasing urine frequency and amount.? Confusion.? Rapid breathing or pulse.SEEK IMMEDIATE MEDICAL CARE IF:? You have blood or brown flecks (like coffee grounds) in your vomit.? You have black or bloody stools.? You have a severe headache or stiff neck.? You are confused.? You have severe abdominal pain.? You have chest pain or trouble breathing.? You do not urinate at least once every 8 hours.? You develop cold or clammy skin.? You continue to vomit for longer than 24 to 48 hours.? You have a fever.MAKE SURE YOU:? Understand these instructions.? Will watch your condition.? Will get help right away if you are not doing well or get worse.Document Released: 08/05/2006 Document Revised: 10/27/2012 Document Reviewed: 01/02/2012ExitCare? Patient Information ?2015 [employer]. This information is not intended to replace advice given to you by your health care provider. Make sure you discuss any questions you have with your health care provider. Normal [facility] ED Patient Summaryon 018 ED Patient Summary (Inserted Image. Mira ble to display) [place] [address] Patient Discharge Instructions Person Information Name: THOMAS QUIROZ Age: 17 Years Date: 10/31/2017 11:01 AMDischarge Diagnosis: Emesis, persistent Primary Care Physician: NONE, XXXX Provider InformationPrimary Provider: Parul Landaverde M.D.hysicicontreras Grid Maker:Black Mcgrath PA-C The exam and treatment you received in the Emergency Department were for an urgent problem and are not intended as complete care. It is important that you follow up with a doctor, nurse practitioner, or physician?s environmental emergencies assistant for ongoing care. If your symptoms become worse or you do not improve as expected and you are unable to reach your usual health care provider, you should return to the Emergency Department. We are available 24 hours a day. THOMAS QUIROZ has been given the following list of patient education materials, prescriptions and follow-up instructions: Follow-up Instructions:With: Address: When: Mike CARUSO, [address], [place] [address] Business (1) In 3 days 11/03/2017 Comments: Call for recheck and take Promethazine as needed In the event that this physician does not participate in your insurance network, please consult with your insurance company to find a nearby participating provider. Patient Education Materials:Nausea and Vomiting Medications Given:Medication Dose Route Sodium Chloride 0.9% intravenous solution 1000.00 mL Initial Volume 1000.00 mL/hr IV Piggyback Left Antecubital [place] promethazine 12.50 mg IV Push Left Antecubital [place] Sodium Chloride 0.9% intravenous solution 1000.00 mL Initial Volume 1000.00 mL/hr IV Piggyback Left Antecubital [place] Medication Information:New MedicationsPrinted Prescriptionspromethazine (promethazine 25 mg Tab) 1 Tabs By Mouth every 6 hours. No Driving or Use at Work. Refills: 0.Medications to Continue with No ChangesOther Medicationsfluoxetine (Prozac) By Mouth every day.quetiapine (Seroquel) By Mouth.Comment: Pharmacy Information: Other: [facility] Thank you for choosing [facility] Patient Education Materials: Nausea and VomitingNausea is a sick feeling that often comes before throwing up (vomiting). Vomiting is a reflex where stomach contents come out of your mouth. Vomiting can cause severe loss of body fluids (dehydration). Children and elderly adults can become dehydrated quickly, especially if they also have diarrhea. Nausea and vomiting are symptoms of a condition or disease. It is important to find the cause of your symptoms.CAUSES? Direct irritation of the stomach lining. This irritation can result from increased acid production (gastroesophageal reflux disease), infection, food poisoning, taking certain medicines (such as nonsteroidal anti-inflammatory drugs), alcohol use, or tobacco use.? Signals from the brain.?These signals could be caused by a headache, heat exposure, an inner ear disturbance, increased pressure in the brain from injury, infection, a tumor, or a concussion, pain, emotional stimulus, or metabolic problems.? An obstruction in the gastrointestinal tract (bowel obstruction).? Illnesses such as diabetes, hepatitis, gallbladder problems, appendicitis, kidney problems, cancer, sepsis, atypical symptoms of a heart attack, or eating disorders.? Medical treatments such as chemotherapy and radiation.? Receiving medicine that makes you sleep (general anesthetic) during surgery.DIAGNOSISYour caregiver may ask for tests to be done if the problems do not improve after a few days. Tests may also be done if symptoms are severe or if the reason for the nausea and vomiting is not clear. Tests may include:? Urine tests.? Blood tests.? Stool tests. ? Cultures (to look for evidence of infection).? X-rays or other imaging studies.Test results can help your caregiver make decisions about treatment or the need for additional tests.TREATMENTYou need to stay well hydrated. Drink frequently but in small amounts.?You may wish to drink water, sports drinks, clear broth, or eat frozen ice pops or gelatin dessert to help stay hydrated.?When you eat, eating slowly may help prevent nausea.?There are also some antinausea medicines that may help prevent nausea.HOME CARE INSTRUCTIONS? Take all medicine as directed by your caregiver.? If you do not have an appetite, do not force yourself to eat. However, you must continue to drink fluids.? If you have an appetite, eat a normal diet unless your caregiver tells you differently.? Eat a variety of complex carbohydrates (rice, wheat, potatoes, bread), lean meats, yogurt, fruits, and vegetables.? Avoid high-fat foods because they are more difficult to digest.? Drink enough water and fluids to keep your urine clear or pale yellow.? If you are dehydrated, ask your caregiver for specific rehydration instructions. Signs of dehydration may include:? Severe thirst.? Dry lips and mouth.? Dizziness.? Dark urine.? Decreasing urine frequency and amount.? Confusion.? Rapid breathing or pulse.SEEK IMMEDIATE MEDICAL CARE IF:? You have blood or brown flecks (like coffee grounds) in your vomit.? You have black or bloody stools.? You have a severe headache or stiff neck.? You are confused.? You have severe abdominal pain.? You have chest pain or trouble breathing.? You do not urinate at least once every 8 hours.? You develop cold or clammy skin.? You continue to vomit for longer than 24 to 48 hours.? You have a fever.MAKE SURE YOU:? Understand these instructions.? Will watch your condition.? Will get help right away if you are not doing well or get worse.Document Released: 08/05/2006 Document Revised: 10/27/2012 Document Reviewed: 01/02/2012ExitCare? Patient Information ?2014 [employer]. This information is not intended to replace advice given to you by your health care provider. Make sure you discuss any questions you have with your health care provider.TANNER Torres SIERRA L , have received the following patient education materials/instructions and have verbalized understanding: Patient Education Materials: Nausea and Vomiting Follow-up Instructions: With: Address: When: Mike CARUSO, [place] [address], [place] [address] Business (5) In 3 days 11/03/2017 Comments: Call for recheck and take Promethazine as needed Prescriptions: [promethazine (promethazine 25 mg Tab)] Patient Signature Date Clinician/Nurse Signature Date 10/31/17 15:07:15 Normal [facility] Influenza A&B Agon 8 Influenzae A Ag Negative Normal Negative [facility] Comment on above: Performed By: #### 1 [id number], [id number] ####[facility] [address] [place] [address] Influenzae B Ag Negative Normal Negative [facility] Comment on above: Result Comment: Test sensitivity and specificity vary for age group, specimen type, antigen types, and prevalence of disease. Test results must be evaluated in conjunction with other clinical data available to the physician. Individuals who received nasally administered Influenza A vaccine may have positive test results up to 3 days after vaccination. Performed By: #### 1 [id number], [id number] ####[address] [place] [address] eGFRon 10-31-2017 eGFR (black) mL/min/{1.73_m2} Normal >=59 [facility] Comment on above: Order Comment: Order added by Discern Expert. Result Comment: eGFR is race adjusted. AA=. Performed By: #### 2 [id number], [id number] ####[address] [place] [address] eGFR (non-black) mL/min/{1.73_m2} Normal >=59 [facility] Comment on above: Order Comment: Order added by Discern Expert. Result Comment: Enamel Drier elias kidney disease could be indicated at eGFR's of less than 60 mL/min/1.73m2. Kidney failure is indicated at less than 15 mL/min/1.73m2. Performed By: #### 2 [id number], [id number] ####[address] [place] [address] Vital Signs Date Time Vital Sign Value Performing Clinician Faci litfernanda 10-23-2023 08:33-0500 Body height 162.6 cm Vasyl Lopez MD Work Phone: [facility] 10-23-2023 08:33-0500 Body mass index (BMI) [Ratio] 29.59 kg/m2 Vasyl Lopez MD Work Phone: [facility] 10-23-2023 08:33-0500 Body weight 78.2 kg Vasyl Lopez MD Work Phone: [employer] 10-23-2023 08:33-0500 Diastolic blood pressure 71 mm[Hg] [facility] 10-23-2023 08:33-0500 Heart rate 80 /min Vasyl Lopez MD [facility] 10-23-2023 08:33-0500 Systolic blood pressure 123 mm[Hg] Vasyl Lopez MD [facility] 01-03-2021 07:34-0400 Diastolic blood pressure 68 mm[Hg] Kenyon Muñozo [employer] - CNM Work Phone: [facility] Work Phone: 01-03-2021 07:34-0400 Heart rate 74 /min Kenyon Muñozo [employer] - CNM Work Phone: [facility] Work Phone: 01-03-2021 07:34-0400 Systolic blood pressure 119 mm[Hg] Kenyon Muñozo [employer] - CNM Work Phone: [facility] Work Phone: 01-03-2021 07:32-0400 Body temperature 98.4 [degF] Kenyon Muñozo [employer] - CNM Work Phone: [facility] Work Phone: 01-03-2021 07:32-0400 Respiratory rate 18 /min Kenyon Muñozo [employer] - CNM Work Phone: [facility] Work Phone: 01-02-2021 01:45-0400 Body height 160 cm Kenyon Muñozo [employer] - CNM Work Phone: [facility] Work Phone: 01-02-2021 01:45-0400 Body mass index (BMI) [Ratio] 30.65 kg/m2 Kenyon Muñozo [employer] - CNM Work Phone: [facility] Work Phone: 01-02-2021 01:45-0400 Body weight 78.47 kg Kenyon Muñozo [employer] - CN Work Phone: [facility] Work Phone: Encounters Encounter Date Encounter Type Care Provider Facility Start: 04-14-2024 End: 04-14-2024 ambulatory KENYON L FLORO Not Available Start: 04-07-2024 End: 04-07-2024 ambulatory KENYON L FLORO Not Available Start: 03-30-2024 End: 03-30-2024 ambulatory KENYON L FLORO Not Available Start: 03-17-2024 End: 03-17-2024 ambulatory KENYON L FLORO Not Available Start: 03-13-2024 End: 03-13-2024 ambulatory KENYON L FLORO Not Available Start: 03-10-2024 End: 03-10-2024 ambulatory KENYON L FLORO Not Available Start: 03-03-2024 End: 03-03-2024 ambulatory KENYON L FLORO Not Available Start: 02-21-2024 End: 02-21-2024 ambulatory KENYON L FLORO Not Available Start: 02-06-2024 End: 02-06-2024 ambulatory KENYON L FLORO Not Available Start: 01-06-2024 End: 01-06-2024 ambulatory KENYON L FLORO Not Available Start: 12-18-2023 End: 12-18-2023 ambulatory KENYON L FLORO Not Available Start: 12-17-2023 End: 12-18-2023 ambulatory KENYON FLORO [facility] Start: 11-18-2023 End: 11-18-2023 ambulatory KENYON L FLORO Not Available Start: 10-23-2023 End: 10-24-2023 Orders Only Melina Pedraza RN [facility] Comment on above: Hyperemesis gravidar um (Primary Dx); Thyroid dysfunction in Start: 10-23-2023 End: 10-23-2023 Office outpatient new 45 minutes Hind Huber Luaa MD Work Phone: [facility] Comment on above: Hyperemesis gravidar um (Primary Dx); Thyroid dysfunction in ; Suspected condition not found; History of maternal pyelonephritis; History of substance use disorder; 12 weeks gestation of Start: 10-21-2023 End: 10-21-2023 ambulatory KENYON VORA Not Available Start: 10-10-2023 Chart abstracting Vasyl bolivar MD Work Phone: [facility] Start: 09-23-2023 End: 09-23-2023 ambulatory [facility] Not Available Start: 09-16-2023 End: 09-17-2023 [facility] Start: 09-15-2023 End: 09-16-2023 ambulatory [facility] Start: 09-09-2023 End: 09-09-2023 Emergency department patient visit [facility] Start: 01-01-2021 End: 01-03-2021 Evaluation and management of inpatient [facility] Start: 01-01-2021 End: 01-03-2021 Evaluation and management of inpatient Kenyon Vora [facility] Work Phone: [facility] Labor and Delivery Start: 12-13-2018 End: 12-14-2018 Patient encounter procedure SCOTT LEW Facility: Start: 10-31-2017 End: 11-01-2017 Ambulatory Mike Hall Facility:[facility] Start: 10-31-2017 End: 10-31-2017 Emergency department patient visit Parul Landaverde Facility:[facility] Procedures Date Procedure Procedure Detail Performing Clinician Start: 09-23-2023 Hemoglobin glycosyla daquan a1c Kenyon Vora [employer]-CNM Work Phone: Start: 09-23-2023 Hepatitis c antibody No t In System Ref Prov Start: 09-23-2023 HIV 1&2 AB/AG SCREEN (P24 AG) Not In System Ref Prov Start: 09-23-2023 Iaad ia hepatitis b surface antigen Not In System Ref Prov Start: 09-23-2023 TYPE AND SCREEN Not In System Ref Prov Start: 01-03-2021 Blood count complete automated Kenyon Vora [employer] - CN Work Phone: Start: 01-03-2021 RHO(D) IMMUNE GLOBUL IN, Kenyon Vora [employer] - CNM Work Phone: Start: 01-02-2021 COVID-19, RAPID Kenyon Vora [employer] - CNM Work Phone: Start: 01-01-2021 Drug screen class list a Kenyon Vora [employer] - CNM Work Phone: Start: 01-01-2021 Blood count complete auto&auto difrntl wbc Kenyon Vora [employer] - CNM Work Phone: Start: 12-07-2020 GBS, EXTERNAL RESULT Hi storical Provider Start: 09-13-2020 C. TRACHOMATIS, EXTE RNAL RESULT Historical Provider Start: 09-13-2020 N. GONORRHOEAE, EXTE RNAL RESULT Historical Provider Start: 07-08-2020 ABO, EXTERNAL RESULT Wv storical Provider Start: 07-08-2020 HEPATITIS B, EXTERNA L RESULT Historical Provider Start: 07-08-2020 HIV, EXTERNAL RESULT Wv storical Provider Start: 07-08-2020 RH FACTOR, EXTERNAL RESULT Historical Provider Start: 07-08-2020 RPR, EXTERNAL RESULT Wv storical Provider Start: 07-08-2020 RUBELLA TITER, EXTER NAL RESULT Historical Provider MD Plan of Treatment Date Care Activity Detail Author Start: 06-18-2028 DTaP,Tdap and Td Vaccines (8 - Td or Tdap) DTaP,Tdap and Td Vaccines (8 - Td or Tdap) [facility] Start: 06-18-2028 DTaP/Tdap/Td vaccine (8 - Td) DTaP/Tdap/Td vaccine (8 - Td) [facility] Work Phone: Start: 10-22-2024 Adult BMI Screening Adult [facility] Screen ing [facility] Start: 10-22-2024 Tobacco Screening Tobacco Screening [facility] Start: 10-22-2024 End: 10-22-2024 US MFM with or without consult US MFM with or without consult Imaging Routine Hyperemesis gravidarum Thyroid dysfunction in Expected: 10/22/2024 (Approximate), Expires: 10/22/2024 [facility] Phone: Comment on above: Expected: 10/22/2024 (Approximate), Expires: 10/22/2024 Start: 09-15-2024 Tobacco Screening Tobacco Screening [facility] Start: 09-09-2024 Adult BMI Screening Adult BMI Screen ing [facility] Start: 12-17-2023 End: 12-17-2023 Patient encounter procedure 12/17/2023 10:15 AM EDT Appointment [facility] - Ultrasound [address] [place] [address] [facility] Start: 10-23-2023 End: 10-23-2023 Patient encounter procedure [facility] Start: 04-19-2023 Influenza vaccination Influenza Vacc ine [facility] Start: 04-19-2021 Influenza vaccination Flu vacc ine (Season Ended) [facility] Phone: Start: 2019 Screening for malign ant neoplasm of cervix [facility] [employer] [facility] Start: 2016 Adult BMI Follow Up Plan Adult BMI Follow Up Plan [facility] Start: 2014 Screening for Chlamy ld trachomatis Chlamydia screen [facility] Phone: Start: 2010 COVID-19 Vaccine (1) COVID-19 Vaccin e (1) [facility] Phone: Start: 2010 [facility] Start: 1998 Hepatitis C screening Hepatitis C sc reen [facility] Phone: RHOGAM RHOGAM POSTPAR ADITI [facility] [employer] Label Print 01/03/2021 6:22 AM EDT [facility] Phone: Immunizations Immunization Date Immunization Notes Care Provider Fa cili 01-02-2021 diphtheria, tetanus toxoids and acellular pertussis vaccine, unspecified formulation Kenyon Vora [employer] - CN Work Phone: [facility] Work Phone: 01-02-2021 measles, mumps and rubella virus vaccine Kenyon Vora [employer] SERV[employer] - CN Work Phone: [facility] Work Phone: 10-18-2020 RHO(D) immune globul in- IV or IM Vasyl Lopez MD Work Phone: [facility] 06-18-2018 RHO(D) immune globul in- IV or IM Vasyl Lopez MD Work Phone: [facility] 06-18-2018 tetanus toxoid, redu norman diphtheria toxoid, and acellular pertussis vaccine, adsorbed Vasyl Lopez MD Work Phone: [facility] 06-18-2018 varicella virus vaccine Vasyl Lopez MD Work Phone: [facility] 04-01-2018 RHO(D) immune globul in- IV or IM Vasyl Lopez MD Work Phone: [facility] Payers Date Payer Category Payer Medicaid [place] MED[place] [id number] 2022-Present [address] [place] [address] [id number] 2017 Medicaid [id number] 1998 Unknown [id number] 1998 Unknown [id number] [id number] 1998 Unknown [id number] [id number]85 1998 Unknown [id number] [id number]85 1998 Unknown [id number] 2.16.840.1.278299.3.579.2.1285 1998 Unknown [id number] 2.16.840.1.854719.3.579.2.1285 1998 Unknown [id number] 2.16.840.1.280418.3.579.2.1285 1998 Unknown [id number] 2.16.840.1.714099.3.579.2.1285 1998 Unknown [id number] 2.16840.1.578899.3.579.2.1258 1998 Unknown [id number] 2.840.1.414414.3.579.2.1258 1998 Unknown [id number] 2.840.1.165289.3.579.2.1258 1998 Unknown [id number] 2.16840.1.923029.3.579.2.1258 1998 Unknown [id number] 2.840.1.763063.3.579.2.1258 1998 Unknown [id number] 2.16840.1.474316.3.579.2.1258 1998 Unknown [id number] 2.16840.1.425138.3.579.2.1258 1998 Unknown [id number] 2.16840.1.391625.3.579.2.1258 1998 Unknown [id number] 2.16.840.1.998114.3.579.2.1258 1998 Unknown [id number] 2.16.840.1.397574.3.579.2.1258 1998 Unknown [id number] 2.16.840.1.852088.3.579.2.1259 1998 Unknown [id number] 2.16.840.1.363081.3.579.2.1259 1998 Unknown [id number] 2.16.840.1.747288.3.579.2.1259 1998 Unknown [id number] [id number] 1959 Unknown [id number] Social History Date Type Detail Facility Start: 01-02-2021 End: 09-09-2023 Tobacco smoking status MAIS Former smoker [facility] Start: 01-02-2021 End: 09-09-2023 Tobacco use and exposure Never used [facility] Start: 01-02-2021 Alcohol intake Current non-dr dietician of alcohol (finding) [facility] Phone: Start: 1998 [facility] Exposure to SARS-CoV -2 (event) Not sure [facility] End: 04-19-2020 History of tobacco use Current smoker [facility] End: 04-19-2020 History of tobacco use Cigarette Smoker [facility] Start: 10-10-2023 End: 10-23-2023 Alcohol intake Ex-drinker (finding) [facility] Start: 09-13-2020 End: 09-15-2023 History of Social function [facility] Start: 09-13-2020 End: 09-15-2023 Tobacco use panel [facility] Childcare Unknown [facility] Start: 08-09-2023 [facility] History of Present illness Narrative 10-23-2023 Melina Pedraza RN - 10/23/2023 9:00 AM Jaqui Lopez MD - 10/23/2023 9:00 AM EST Note Date & Type Note Facility 10-23-2023 History of Present illness Narrative Headache/epigastric pain/blurry vision/swelling? No Cramping/contractions? No Abnormal vaginal discharge? No Spotting/vaginal bleeding? No Loss of fluid like your water may have broken? No Cats in the home? Yes Do you change the litter box? No Flu vaccine? No Genetic testing done this here or other office? No Have you been seen here at [facility] in a previous ? No Recent ER visits or hospitalizations? Yes, last 09/16/23 [place] [facility] for hyperemesis Bring blood sugar log or meter with you today? (Please bring them with you for every visit at [facility]) N/A Traveled outside the country in the past 6 month No Any concerns that you would like me to mention to the provider today? No Images from the original note were not included. [facility] Consult Note Reason For Consult: HPI: Thomas Quiroz is a 23 y.o. @ 12w5d who presented for consultation from Kenyon Carrasco, DARLIN-DORYS regarding Chief Complaint Patient presents with Hyperemesis Gravidarum Hx Substance Abuse Thyroid Dysfunction Patient Active Problem List Diagnosis Hyperemesis gravidarum with dehydration Pyelonephritis affecting in second trimester Encounter for induction of labor Hyperemesis gravidarum She reports that she is doing well. She reports normal movements and she denies LOF, contractions, vaginal bleeding, headache, blurry vision, RUQ pain and edema. The primary encounter diagnosis was Hyperemesis gravidarum. Diagnoses of Thyroid dysfunction in , Suspected condition not found, History of maternal pyelonephritis, History of substance use disorder, and 12 weeks gestation of were also pertinent to this visit. She has opted out of aneuploidy screening Review of systems: Review of systems was noncontributory Complications: Problem List Items Addressed This Visit Digestive Hyperemesis gravidarum - Primary Other Visit Diagnoses Thyroid dysfunction in Suspected condition not found History of maternal pyelonephritis History of substance use disorder 12 weeks gestation of PMH: Past Medical History: Diagnosis Date Anxiety Anxiety Depression Disease of thyroid gland H/O bipolar disorder Insomnia Kidney stone Pyelonephritis affecting in second trimester 02/21/2018 Restless leg syndrome Substance abuse (CMS-HCC) PSHIST: Past Surgical History: Procedure Laterality Date DILATION AND CURETTAGE OF UTERUS WISDOM TOOTH EXTRACTION Bilateral 2015 OB Hx: OB History Para Term AB Living 3 2 2 0 0 2 SAB IAB Ectopic Multiple Live Births 0 0 0 0 2 # Outcome Date GA Lbr Ricki/2nd Weight Sex Delivery Anes PTL Lv 3 Current 2 Term 01/02/21 39w2d 3.629 kg F Vag-Spont EPI ALLEN 1 Term 06/17/18 39w1d 05:52 / 00:25 3.188 kg F Vag-Spont EPI, IV analgesia, Local N ALLEN PREECLAMPSIA SCREEN ([place] Preventive Services Task Force) Patient is at high risk if 1 or more factors present. Incidence of preeclampsia is ? 8%: Prior preeclampsia NO Multiple gestation NO Chronic hypertension NO Type 1 or 2 diabetes NO Renal disease NO Autoimmune disease NO (Lupus, APLS) Patient is at moderate risk is several risk factors are present: Nulliparity NO Obesity (BMI ? 30) NO Family history of preeclampsia NO (Mother, sister) NO Sociodemographic characteristics NO (AA, low socioeconomic status) Age ? 33 NO Personal history factor NO (Previous SGA, adverse outcome, > 10 years from last ) Allergies: Allergies Allergen Reactions Ibuprofen Vomiting blood Phenergan [Promethazine] Anxiety Patient states it made her shaky Meds: Prior to Admission medications Medication Sig Start Date End Date Taking? Authorizing Provider FLUoxetine (PROzac) 40 mg capsule Take 1 capsule (40 mg total) by mouth in the morning. Yes Not In System Ref Prov metoclopramide (REGLAN) 10 mg tablet Take 1 tablet (10 mg total) by mouth in the morning and 1 tablet (10 mg total) at noon and 1 tablet (10 mg total) in the evening and 1 tablet (10 mg total) before bedtime. Yes Not In System Ref Prov ondansetron (ZOFRAN) 4 mg tablet Take 1 tablet (4 mg total) by mouth every 8 (eight) hours as needed for nausea or vomiting. CURRENTLY OUT OF MEDICATION 06/30/20 Yes Black Lopez, DO QUEtiapine (SEROquel) 50 mg tablet Take 1 tablet (50 mg total) by mouth nightly. Yes Not In System Ref Prov buprenorphine-naloxone (SUBOXONE) 8-2 mg per SL tablet Place 0.5 tablets under the tongue 2 (two) times a day. Patient not taking: Reported on 09/09/2023 Not In System Ref Prov diphenhydramine HCl (UNISOM, DIPHENHYDRAMINE, ORAL) Take by mouth. Patient not taking: Reported on 10/23/2023 Not In System Ref Prov 25/iron fum/folic/dha (-1 ORAL) Take by mouth. Patient not taking: Reported on 10/23/2023 Not In System Ref Prov sertraline (ZOLOFT) 25 mg tablet Take 50 mg by mouth daily. Patient not taking: Reported on 09/09/2023 Not In System Ref Prov tiZANidine (ZANAFLEX) 4 mg capsule Take 4 mg by mouth 3 (three) times a day. Patient not taking: Reported on 10/23/2023 Not In System Ref Prov SH: Social History Socioeconomic History Marital status: Single Spouse name: Not on file Number of children: Not on file Years of education: Not on file Highest education level: Not on file Occupational History Not on file Tobacco Use Smoking status: Former Types: Cigarettes Quit date: 04/19/2020 Years since quittin.5 Smokeless tobacco: Never Vaping Use Vaping Use: Former Substance and Sexual Activity Alcohol use: Not Currently Drug use: No Sexual activity: Yes Partners: Male control/protection: None Other Topics Concern Not on file Social History Narrative Not on file Social Determinants of Health Financial Resource Strain: Not on file Food Insecurity: No Food Insecurity (10/23/2023) Hunger Screening Food Insecurity - Worry: Never True Food Insecurity - Inability: Never True Transportation Needs: Not on file Physical Activity: Not on file Stress: Not on file Social Connections: Not on file Interpersonal Safety: Not on file Housing Instability: Not on file Physical Exam: Vital Signs Vitals: 10/23/23 0833 BP: 123/71 Pulse: 80 Weight: 78.2 kg (172 lb 6.4 oz) Height: 162.6 cm (5' 4 ) Physical Exam: Gen: Not in acute distress, alert and oriented. Eyes: Pupils equal and reactive Chest: Nonlabored breathing Cardiac: Pulse was regular on vital signs assessment Abdomen: Gravid Skin/extremities: Appears intact. No visible lesions MS:no visible edema Neuro: No focal deficits Assessment/Plan 23 y.o. @ 12w5d here for consultation regardin. Hyperemesis gravidarum She has been managed for hyperemesis gravidarum and currently has a Zofran pump. She had clinically noted some improvement. Current Outpatient Medications: FLUoxetine (PROzac) 40 mg capsule, Take 1 capsule (40 mg total) by mouth in the morning., Disp: , Rfl: metoclopramide (REGLAN) 10 mg tablet, Take 1 tablet (10 mg total) by mouth in the morning and 1 tablet (10 mg total) at noon and 1 tablet (10 mg total) in the evening and 1 tablet (10 mg total) before bedtime., Disp: , Rfl: ondansetron (ZOFRAN) 4 mg tablet, Take 1 tablet (4 mg total) by mouth every 8 (eight) hours as needed for nausea or vomiting. CURRENTLY OUT OF MEDICATION, Disp: 20 tablet, Rfl: 3 QUEtiapine (SEROquel) 50 mg tablet, Take 1 tablet (50 mg total) by mouth nightly., Disp: , Rfl: buprenorphine-naloxone (SUBOXONE) 8-2 mg per SL tablet, Place 0.5 tablets under the tongue 2 (two) times a day. (Patient not taking: Reported on 09/09/2023), Disp: , Rfl: diphenhydramine HCl (UNISOM, DIPHENHYDRAMINE, ORAL), Take by mouth. (Patient not taking: Reported on 10/23/2023), Disp: , Rfl: 25/iron fum/folic/dha (-1 ORAL), Take by mouth. (Patient not taking: Reported on 10/23/2023), Disp: , Rfl: sertraline (ZOLOFT) 25 mg tablet, Take 50 mg by mouth daily. (Patient not taking: Reported on 09/09/2023), Disp: , Rfl: tiZANidine (ZANAFLEX) 4 mg capsule, Take 4 mg by mouth 3 (three) times a day. (Patient not taking: Reported on 10/23/2023), Disp: , Rfl: 2. Thyroid dysfunction in 3. Suspected condition not found Reviewed with patient today the physiologic changes in the in regards to thyroid function. Discussed that hyperemesis and 1st trimester changes can suppress TSH physiologically however should recover appropriately. Recommended evaluation in the second trimester. she requires understanding. The labs to be ordered by primary ob team. Component Latest Ref Rng 09/15/2023 TSH 0.49 - 4.67 uIU/mL 0.05 (L) T4, free 0.61 - 1.60 ng/dL 1.32 Legend: (L) Low Thyroid disease in 4. History of maternal pyelonephritis Recommend antibiotic suppression and serial urine culture Q trimester. 5. History of substance use disorder In remission. 6. 12 weeks gestation of Hyperemesis gravidarum [O21.0] Recommendations: Detailed anatomic evaluation at 20-22 weeks Serial growth assessments every 4 weeks after the anatomy scan Delivery recommended at or after 39 weeks, earlier as clinically indicated Plan reviewed with patient. She vocalized understanding all questions answered. The patient is to continue with routine care in your office [facility], the CDC, and other organizations representing maternal and public health professionals recommend that , , and lactating people and those considering receive the COVID-19 vaccination. Vaccination is the best method to reduce maternal and complications of SARS-CoV-2 infection. This document was created with onefinestay technology. Though I make every effort to review the dictation as it is transcribed, on occasion the spoken word can be misinterpreted by the technology leading to inappropriate words, phrases, or sentences. This note is addressed to the requesting provider as a consultation for clinical guidance. Specific medical abbreviations are occasionally used and those are generally approved by the [place]?Board of?Obstetrics and?Gynecology?as well as?Ulices s abbreviations. The above plan of care was based solely on the diagnoses for which a consultation was requested. ?More frequent testing may be indicated based on her other medical/obstetrical conditions. The management of other or medical conditions is beyond the scope of requested consultation and will continue to be followed by the primary surveillance system monitor or primary care provider. Thank you for allowing me to participate in her care. Please contact me if you have any concerns. Total time spent was 45 minutes: Preparing to see the patient (e.g., review of tests) Obtaining and/or reviewing separately obtained history Performing a medically appropriate examination and/or evaluation Counseling and educating the patient/family/caregiver Ordering medications, tests, or procedures Referring and communicating with other health rn transitional care (not separately reported) Documenting clinical information in the electronic or other health record Independently interpreting results (not separately reported) and communicating results to the patient/family/caregiver Care coordination (not separately reported) documented in this encounter [facility] History of Present illness Narrative 01-03-2021 Brooke Hebert, RAMP SERVICE MAN - CN - 01/03/2021 7:34 AM Charisma Graves, MERLENE - 01/02/2021 9:15 PM Get Nasraakira Starks APRN - CN - 01/02/2021 12:35 PM EDT Note Date & Type Note Facility 01-03-2021 History of Present illness Narrative Department of Obstetrics and Gynecology Labor and Delivery Post Progress Note SUBJECTIVE: 1st day s/p , baby was transferred to [facility] but is extubated and taking formula by bottle today. Has hx of drug abuse and on suboxone this . She has anxiety depression and bipolar and reports that at stable. She desires discharge to be with baby. She had a large blood loss but is asymptomatic this am with hgb 8.3 OBJECTIVE: Vitals: BP 119/68 Pulse 74 Temp 98.4 F (36.9 C) Resp 18 Ht 5' 3 (1.6 m) Wt 173 lb (78.5 kg) LMP 04/03/2020 Unknown BMI 30.65 kg/m Patient Vitals for the past 24 hrs: BP Temp Temp src Pulse Resp 01/03/21 0734 119/68 74 01/03/21 0732 98.4 F (36.9 C) 18 01/03/21 0300 113/71 98.1 F (36.7 C) Oral 81 16 01/02/21 2306 (!) 140/75 98.5 F (36.9 C) Oral 79 14 01/02/21 1955 135/88 98.4 F (36.9 C) Oral 96 16 01/02/21 1738 138/80 70 16 01/02/21 1723 137/85 74 18 01/02/21 1708 128/82 75 16 01/02/21 1653 134/84 72 18 01/02/21 1638 133/88 71 18 01/02/21 1623 138/87 66 16 01/02/21 1608 (!) 143/83 94 16 01/02/21 1553 135/82 67 16 01/02/21 1538 (!) 140/77 69 16 01/02/21 1523 129/89 71 16 01/02/21 1520 136/65 83 16 01/02/21 1438 115/63 93 01/02/21 1423 (!) 139/90 131 01/02/21 1410 137/76 97 01/02/21 1400 18 01/02/21 1351 131/69 78 01/02/21 1349 136/81 83 01/02/21 1347 133/70 72 01/02/21 1345 131/75 85 01/02/21 1343 132/74 88 01/02/21 1341 (!) 143/80 78 01/02/21 1339 136/75 71 01/02/21 1337 132/72 81 01/02/21 1335 126/66 73 01/02/21 1333 138/74 71 01/02/21 1331 131/68 83 01/02/21 1329 135/67 68 01/02/21 1327 137/65 72 01/02/21 1324 137/68 84 01/02/21 1323 139/71 76 01/02/21 1321 138/72 83 01/02/21 1319 (!) 140/65 83 01/02/21 1317 127/60 82 01/02/21 1315 131/65 104 01/02/21 1313 (!) 139/91 81 01/02/21 1311 137/87 81 01/02/21 1300 20 01/02/21 1254 (!) 140/90 102 01/02/21 1223 (!) 143/90 73 01/02/21 1200 18 01/02/21 1153 119/76 70 01/02/21 1122 115/69 71 01/02/21 1100 18 01/02/21 1052 134/78 85 01/02/21 1023 136/84 96 01/02/21 1000 16 01/02/21 0952 (!) 144/88 82 01/02/21 0922 (!) 144/83 80 01/02/21 0900 18 01/02/21 0800 18 ABDOMEN: normal shape, position and consistency GENITAL/URINARY: External Genitalia: General appearance; normal, Hair distribution; normal, Lesions absent Uterus: Size normal, Tenderness absent Breast:normal appearance, no masses or tenderness Cor: RRR no Murmurs Pulmonary: clear to auscultation anterior and posterior Extremities: no Clubbing cyanosis or ecchymosis DATA: CBC: Lab Results Component Value Date WBC 13.6 01/03/2021 RBC 2.99 01/03/2021 HGB 8.6 01/03/2021 HCT 27.3 01/03/2021 MCV 91.3 01/03/2021 MCH 28.8 01/03/2021 MCHC 31.5 01/03/2021 RDW 14.9 01/03/2021 PLT 236 01/03/2021 MPV 9.2 01/03/2021 ASSESSMENT : Active Problems: Term Plan: delivered Normal delivery hemorrhage, stable Plan: D/c home., rto 2 and 6 weeks, continue [place] [facility] in [place]. Routine orders and instructions Chemical Waste Management Technician spoke with Jalyn Vora about reordering patient's home medications. Orders received. Department of Obstetrics and Gynecology Progress Note SUBJECTIVE: Pt doing well today pt denies needs at this time Note I am here for Jalyn Vora CNM for AROM OBJECTIVE: Vitals: 01/02/21 1122 01/02/21 1153 01/02/21 1200 01/02/21 1223 BP: 115/69 119/76 (!) 143/90 Pulse: 71 70 73 Resp: 18 Temp: TempSrc: Weight: Height: heart rate: cat 1 Contraction frequency: 3 minutes Membranes: Ruptured clear fluid with finger cot Cervix: Dilation: 4 cm Effacement: 80 Station: -1 Position: mid ASSESSMENT & PLAN: Continue care Report to jalyn vora cnm Department of Obstetrics and Gynecology Progress Note SUBJECTIVE: Doing well, sitting up in bed visiting with her mom and boyfriend. States she is not really feeling the contractions. OBJECTIVE: Vitals: 01/02/21 0145 01/02/21 0333 01/02/21 0643 01/02/21 0922 BP: 120/66 136/84 (!) 144/83 Pulse: 71 62 80 Resp: 16 18 Temp: 98.9 F (37.2 C) 98.6 F (37 C) TempSrc: Oral Oral Weight: 173 lb (78.5 kg) Height: 5' 3 (1.6 m) heart rate: Baseline Heart Rate: 135 Accelerations: present Intermediate Variability: moderate Decelerations: absent Contraction frequency: 2-3 minutes Membranes: Intact Cervix: Dilation: 2-3 Effacement: 70 Station: -3 Position: Mid Unable to perform AROM at this time due to baby is ballotable ASSESSMENT & PLAN: Continue routine labor orders Begin pitocin augmentation following routine orders Dr Lakhani updated with plan of care and SVE Larisa Vora CNM updated via telephone on pt contractions, pain rating, and SVE. Provider requests pt continue to be monitored and encouraged to move and walk. Pt may be taken of monitor to walk in hallway. Larisa Vora CNM updated via telephone on pt contractions, pain rating, FHR variability, and SVE. Provider requests next scheduled dose of cytotec be held and continue to monitor patient with IV fluids running. Larisa Vora CNM phones department to confirm orders for induction. Updated on pt status. Additional orders received for subutex, zoloft, and ambien. documented in this encounter [facility] Phone: Evaluation note Note Date & Type Note Facility Evaluation note Diagnosis Term Normal delivery documented in this encounter [facility] Phone: Evaluation note Note Date & Type Note Facility Evaluation note Diagnosis Hyperemesis gravidarum- Primary Mild hyperemesis gravidarum, unspecified as to episode of care Thyroid dysfunction in Thyroid dysfunction of mother, complicating , childbirth, or the puerperium, unspecified as to episode of care documented in this encounter [facility] Evaluation note Note Date & Type Note Facility Evaluation note Diagnosis Hyperemesis gravidarum- Primary Mild hyperemesis gravidarum, unspecified as to episode of care Thyroid dysfunction in Thyroid dysfunction of mother, complicating , childbirth, or the puerperium, unspecified as to episode of care Suspected condition not found Observation for unspecified suspected condition History of maternal pyelonephritis Personal history of urinary (tract) infection History of substance use disorder 12 weeks gestation of documented in this encounter [facility] Hospital Discharge instructions InstructionsAttachments Note Date & Type Note Facility Hospital Discharge instructions Julisa Meeks RN - 01/03/2021 Follow-up with your OB doctor as specified. [facility] OB Department phone: Jalyn Vora, MSN, RAMP SERVICE MAN, CNM [place] [address] DIET Eat a well balanced diet focusing on foods high in fiber and protein. Drink plenty of fluids especially water. To avoid constipation you may take a mild stool softener as recommended by your doctor or auto mechanic supervisor. ACTIVITY Gradually increase your activity. Resume exercise regimen only after advice by your doctor or auto mechanic supervisor. Avoid lifting anything heavier than a gallon of milk for SIX weeks. Avoid driving until your doctor or auto mechanic supervisor has given their approval. Rise slowly from a lying to sitting and then a standing position. Climb stairs one at a time. Use caution when carrying your baby up and down the stairs. NO SEXUAL Activity for 4-6 weeks or until advised by your doctor; Nothing in vagina: intercourse, tampons, or douching. Be prepared to discuss family planning at your follow-up OB visit. You may feel tired or have a lack of energy. You may continue your vitamin to replenish nutrients post delivery. Nap when baby naps to catch up on sleep. EMOTIONS You may feel louis, sad, teary, & overwhelmed. Contact your OB provider if you feel you may be showing signs of depression, or have thoughts of harming yourself or your . If infant will not stop crying, contact another adult for help or place in their crib on their back and take a break. NEVER shake your infant. BLEEDING Vaginal bleeding will decrease in amount over the next few weeks. You will notice that as your activity increases, your flow may increase. This is your body's way of telling you, you need to take things easier and rest more often. Call your care provider if you are saturating more than one maxi pad in an hour & resting does not help. BREAST CARE Take medications as recommended by your doctor or auto mechanic supervisor for pain If you develop a warm, red, tender area on your breast or develop a fever contact your OB provider. For moms: If you become engorged, feeding may be more difficult or painful for 1-2 days. You may find it helpful to hand express some milk so that the can latch on more easily. While , continue to take your vitamins as directed by your doctor or auto mechanic supervisor. Refer to the booklet in the folder/binder for more information. If you feel you need more assistance or have questions, please call Shani Prince IBCLC, beauty consultant, at or the OB department to schedule an appointment or phone consultation. For more FREE help, visit the Support Group on Saturday evenings at 7 pm in the OB department. For NON- moms: You may apply ice packs to your breasts over your bra for twenty minutes at a time for comfort. Avoid stimulation to your breasts, when showering allow the water to strike your back not your breasts. Wear a good fitting bra until your milk dries, such as a sports bra. INCISIONAL CARE / NEIL CARE If you have an acticoat dressing in place after your please leave your dressing in place for one week until you follow up with your provider. They will remove this dressing in the office when you see them. If you have a VERA negative pressure wound dressing please leave the dressing in place for 7 days after delivery. Your health care provider will remove the dressing at your one week incisional check. You may shower with your VERA dressing, however the VERA pump should be disconnected and placed in a safe location where it will not get wet. To disconnect the pump from the dressing, press the orange button to pause the therapy, unscrew the two part connector, and place the pump somewhere safe. While disconnected, ensure the end of the tubing attached to the dressing is facing downward so that water does not enter the tubing. Then re-connect the pump after your shower is complete. If your dressing starts to peel up or becomes soiled prior to your appointment with your provider, you may remove the dressing and clean your incision as directed below. Clean your incision in the shower with mild soap. After shower pat the incision area dry and allow the area open to air. If used, Steri-strips should be completely removed by 2 weeks but you may remove them as they become loose or soiled. If used, [place] should be removed by your care provider. If used/ordered, an abdominal binder may provide support for your incision. Use the neil-bottle after toileting until bleeding stops. Cleanse your perineum from front to back If used, stitches will dissolve in 4-6 weeks. You may use a sitz bath or soak in a clean tub as needed for comfort. Kegel exercises will help restore bladder control. SWELLING Try to keep your legs elevated when you are sitting. When lying down keep your legs elevated. When wearing stocking or socks, make sure they are not too tight. WHEN TO CALL THE DOCTOR If you have a temp of 100.6 or more. If your bleeding has increased and you are saturating a pad in an hour. Your abdomen is tender to touch. You are passing blood clots bigger than the size of a lemon. If you are experiencing extreme weakness or dizziness. If you are having flu-like symptoms such as achy muscles or joints. There is a foul smell or a green color to your vaginal bleeding. If you have pain that cannot be relieved. You have persistent burning or frequency with urination. Call if you have concerns about your well-being. You are unable to sleep, eat, or are having thoughts of harming yourself or your baby. You have swelling, bleeding, drainage, foul odor, redness, or warmth in/around your incision or stitches. You have a red, warm, tender area in your calf. The following attachments cannot be sent through Care Everywhere. (Maori)Baby-Friendly : General Info (Maori) (Maori)documented in this encounter [facility] Work Phone: Instructions Note Date & Type Note Facility Instructions Not on filedocumented in this en counter [facility] Instructions Note Date & Type Note Facility Instructions Not on filedocumented in this en counter [facility] Instructions Note Date & Type Note Facility Instructions Not on filedocumented in this en counter [facility] Summary Purpose Family History No Family History Records FoundNo Family History Records FoundNo Family History Records FoundNo Family History Records FoundNo Family History Records FoundNo Family History Records FoundNo Family History Records Found Advance Directives No Advanced Directives Records FoundDocuments on File Type Date Recorded Patient Pocket Creaser Expl anation ACP-Advance Directive ACP-Power of Water Control Supervisor Latest Code Status on File Code Status Date Activated Date Inactivated Comments Full Code 01/02/2021 6:30 PM Full Code 01/02/2021 9:33 AM 01/02/2021 6:30 PM Full Code 01/01/2021 8:10 PM 01/02/2021 9:33 AM Full Code 05/23/2018 10:21 PM 05/25/2018 1:42 PM Latest Code Status on File Code Status Date Activated Date Inactivated Comments Full Code 09/15/2023 4:29 PM 09/16/2023 4:37 PM Code Status History Code Status Date Activated Date Inactivated Comments Full Code 10/21/2020 2:32 PM 10/21/2020 6:40 PM Full Code 06/19/2018 7:32 AM 06/19/2018 10:49 PM Full Code 06/16/2018 7:42 AM 06/17/2018 4:37 AM Full Code 02/21/2018 7:53 PM 02/25/2018 11:11 AM Latest Code Status on File Code Status Date Activated Date Inactivated Comments Full Code 09/15/2023 4:29 PM 09/16/2023 4:37 PM Code Status History Code Status Date Activated Date Inactivated Comments Full Code 10/21/2020 2:32 PM 10/21/2020 6:40 PM Full Code 06/19/2018 7:32 AM 06/19/2018 10:49 PM Full Code 06/16/2018 7:42 AM 06/17/2018 4:37 AM Full Code 02/21/2018 7:53 PM 02/25/2018 11:11 AM Reason for Referral Specialty Diagnoses / Procedures Referred By Contac t Referred To Contact Maternal and Medicine Diagnoses Hyperemesis gravidarum Thyroid dysfunction in Procedures [facility] with or without consult Vasyl Lopez MD [address] [facility], [address] [place] [id number] [facility] Maternal Med [address] [place] [address] Referral ID Status Reason Start Date Expiration Date V isits Requested Visits Authorized [id number] Pending Review 10/23/2023 10/22/2024 1 1 Additional Source Comments INFORMATION SOURCE (unrecogn ized section and content) DATE CREATED AUTHOR 02/06/2018 [place] [facility] DATE CREATED AUTHOR AUTHOR'S ORGANIZ ATION 12/26/2018 [facility] DATE CREATED AUTHOR AUTHOR'S ORGANIZ ATION 01/04/2021 [facility] DATE CREATED AUTHOR AUTHOR'S ORGANIZ ATION 03/07/2022 [facility] Specialist DATE CREATED AUTHOR AUTHOR'S ORGANIZ ATION 10/25/2023 [facility] DATE CREATED AUTHOR AUTHOR'S ORGANIZ ATION 12/18/2023 [facility] DATE CREATED AUTHOR AUTHOR'S ORGANIZ ATION 04/18/2024 [facility] dical Specialists [facility] Reason for Visit (unrecogniz ed section and content) Reason Comments Scheduled Induction Status Reason Specialty Diagnoses / Procedures Referre d By Contact Referred To Contact Diagnoses Term Kenyon Vora, DARLIN - DORYSM [address] [place] [address] [facility] Reason Comments Hyperemesis Gravidarum Hx Substance Abuse Thyroid Dysfunction Scheduled Active and Recently Administ ered Medications (unrecognized section and content) Medication Order 01/01/2021 01/02/2021 01/03/2021 benzocaine-menthol (DERMOPLAST) 20-0.5 % spray Topical, 2 TIMES DAILY, First dose on Sat01/02/21 at 2100, Apply to perineal area. Patient is capable and may self administer at bedside., 1947 (Given - Provider: Laura Sage RN) 0900 (Due)2100 (Due) buprenorphine (SUBUTEX) SL tablet 4 mg (CANCELED) 4 mg, Sublingual, EVERY MORNING, First dose on Sat01/02/21 at 0900, 1/2 8mg tablet 0851 (Given - Provider: Julisa Meeks RN) buprenorphine (SUBUTEX) SL tablet 4 mg 4 mg, Sublingual, EVERY MORNING, First dose (after last modification) on Sat01/03/21 at 0900, 0.5 tab 0852 (Given - Provider: Julisa Meeks, MERLENE) buprenorphine (SUBUTEX) SL tablet 6 mg (CANCELED) 6 mg, Sublingual, NIGHTLY, First dose on Sat01/01/21 at 2130, 3/4 8mg tablet 2121 (Given - Provider: Yuki Diamond RN) buprenorphine (SUBUTEX) SL tablet 6 mg 6 mg, Sublingual, NIGHTLY, First dose (after last reorder) on Sat01/02/21 at 2130, 0.75 tab 2135 (Given - Provider: Charisma Dixon RN) 2100 (Due) ferrous sulfate (IRON 325) tablet 325 mg 325 mg, Oral, 2 TIMES DAILY WITH MEALS, First dose on Sat01/02/21 at 1900, Start if Hgb less than 10., 1938 (Not Given - Provider: Charisma Dixon RN - Reason: Other) 0854 (Given - Provider: Julisa Meeks RN)1700 (Due) ibuprofen (ADVIL;MOTRIN) tablet 800 mg 800 mg, Oral, EVERY 8 HOURS, First dose on Sat01/02/21 at 1900, Do not crush or break., 1948 (Given - Provider: Laura Sage RN) 0300 (Given - Provider: Chairsma Dixon RN)1100 (Due)1900 (Due) measles, mumps & rubella vaccine (MMR) injection 0.5 mL 0.5 mL, Subcutaneous, PRIOR TO DISCHARGE, Starting on Sat01/02/21 at 1830, For 1 dose, miSOPROStol (CYTOTEC) pre-split tablet TABS 25 mcg (CANCELED) 25 mcg, Vaginal, EVERY 4 HOURS, First dose on Sat01/01/21 at 2030, Place posterior fornix/vagina, insert every 4-6 hours PRN. Maximum of 6 doses in 24 hours., Labor and Delivery 2043 (Given - Provider: Yuki Diamond RN) 0030 (Due)0430 (Due)0830 (Not Given - Provider: Julisa Meeks RN - Reason: Other - Comment: order d/c'd) sertraline (ZOLOFT) tablet 100 mg (CANCELED) 100 mg, Oral, NIGHTLY, First dose on Sat01/01/21 at 2130 2144 (Given - Provider: Yuki Diamond RN) sertraline (ZOLOFT) tablet 100 mg 100 mg, Oral, NIGHTLY, First dose on Sat01/02/21 at 2200 2134 (Given - Provider: Charisma Dixon RN) 2100 (Due) sodium chloride flush 0.9 % injection 10 mL 10 mL, Intravenous, EVERY 12 HOURS SCHEDULED (2 times per day), First dose on Sat01/02/21 at 2100, 2117 (Given - Provider: Charisma Dixon RN) 0854 (Not Given - Provider: Julisa Meeks RN - Reason: Loss of IV access)2099 (Due) Qfbbnqb-Ujlyac-Hfveq Pertussis (BOOSTRIX) injection 0.5 mL 0.5 mL, Intramuscular, PRIOR TO DISCHARGE, Starting on Sat01/02/21 at 1830, For 1 dose, If not previously administered during at 27-36 weeks as recommended by CDC., witch corey-glycerin (TUCKS) pad Topical, 2 TIMES DAILY, First dose on Sat01/02/21 at 2100, Apply to perineal area. Patient is capable and may self administer at bedside., 1949 (Given - Provider: Laura Sage RN) 0739 (Given - Provider: Julisa Meeks RN)2100 (Due) Continuous Medication Order 01/01/2021 01/02/2021 01/03/2021 lactated ringers infusion (CANCELED) Intravenous, at 150 mL/hr, CONTINUOUS, Starting on Sat01/01/21 at 2030, LR bolus for 1000 ml in preparation for epidural placement, Labor and Delivery 2030 (New Bag - Provider: Yuki Diamond RN)2250 (Rate/Dose Change - Provider: Yuki Diamond RN) 0002 (New Bag - Provider: Yuki Diamond RN)0616 (New Bag - Provider: Yuki Diamond RN)1224 (New Bag - Provider: Julisa Meeks, MERLENE)1326 (New Bag - Provider: Julisa Meeks RN) oxytocin (PITOCIN) 30 Units in sodium chloride 0.9 % 500 mL infusion (CANCELED) 1 lashonda-units/min (1 mL/hr), Intravenous, at 1 mL/hr, CONTINUOUS, Starting on Sat01/02/21 at 1000, Begin infusion at 1 lashonda-unit/min (1 lashonda-unit per min = 1 mL per hour) and increase by 2 lashonda-units/min as needed, every 30 minutes, until labor is achieved. Labor is defined as contractions every 2-3 minutes with cervical changes or [place] units (MVU) greater than 200 in a 10-minute window. Maximum infusion rate: 24 lashonda-unit/min. Contact provider if maximum rate does not achieve desired response. Provider may order alternative titration goal or other clinically appropriate goal of titration rate (s). If staff does not increase pitocin at ordered rate, or if pitocin is turned down or off notify provider., Labor and Delivery 0955 (New Bag - Provider: Julisa Meeks RN)1030 (Rate/Dose Change - Provider: Julisa Meeks RN)1100 (Rate/Dose Change - Provider: Julisa Meeks, MERLENE)1200 (Rate/Dose Change - Provider: Julisa Meeks RN)1230 (Rate/Dose Change - Provider: Julisa Meeks, MERLENE) PRN Medication Order 01/01/2021 01/02/2021 01/03/2021 0.9 % sodium chloride infusion 25 mL, Intravenous, at 100 mL/hr, PRN, If patient receiving piggyback infusions without ordered maintenance IV fluids or with frequent/long duration piggyback infusions, Starting on Sat01/02/21 at 1830, Administer at the same rate as the piggyback being infused., acetaminophen (TYLENOL) tablet 650 mg 650 mg, Oral, EVERY 4 HOURS PRN, Fever, Fever >100.5 F (38 C) or pain 1-10, Starting on Sat01/02/21 at 1830, Maximum dose of acetaminophen is 4000 mg from all sources in 24 hours., acetaminophen (TYLENOL) tablet 650 mg (CANCELED) 650 mg, Oral, EVERY 4 HOURS PRN, Pain Mild (1-3), Fever, Fever >100.5 F (38 C), Starting on Sat01/01/21 at 2007, Maximum dose of acetaminophen is 4000 mg from all sources in 24 hours., Labor and Delivery 2205 (Given - Provider: Yuki Diamond RN) docusate sodium (COLACE) capsule 100 mg 100 mg, Oral, 2 TIMES DAILY PRN, Constipation, Starting on Sat01/02/21 at 1830, Do not crush or break., lansinoh lanolin ointment Topical, PRN, Dry Skin, nipple discomfort, Starting on Sat01/02/21 at 1830, lidocaine PF 1 % injection 30 mL (COMPLETED) 30 mL, Other, PRN, for perineal laceration/episiotomy repair, Starting on Sat01/01/21 at 2007, For 1 dose, Post Delivery 1440 (Given - Provider: Madison Franco, MERLENE) methylergonovine (METHERGINE) injection 200 mcg (CANCELED) 200 mcg, Intramuscular, PRN, Bleeding, Starting on Sat01/01/21 at 2007, Prevention of post- hemorrhage, if not hypertensive., Post Delivery 1448 (Given - Provider: Madison Franco, MERLENE) miSOPROStol (CYTOTEC) tablet 900 mcg (CANCELED) 900 mcg, Rectal, PRN, Post Hemmorrhage, Starting on Sat01/01/21 at 2007, Post Delivery 1506 (Given - Provider: Madison Franco, RN) ondansetron (ZOFRAN-ODT) disintegrating tablet 8 mg 8 mg, Oral, EVERY 8 HOURS PRN, Nausea, Starting on Sat01/02/21 at 1830, oxytocin (PITOCIN) 10 unit bolus from the bag (COMPLETED) 999 mL/hr, Intravenous, at 999 mL/hr, Administer over 20 Minutes, PRN, Bleeding, Starting on Sat01/01/21 at 2007, For 1 dose, For Post Use Only. Give after delivery of placenta. Bolus for bag to infuse at 999ml/20 minutes., Post Delivery 1447 (Given - Provider: Madison Franco, MERLENE)1507 (Due: Stopped - Provider: Madison Franco, MERLENE) oxytocin (PITOCIN) 30 Units in sodium chloride 0.9 % 500 mL infusion (COMPLETED) 166 lashonda-units/min (166 mL/hr), Intravenous, at 166 mL/hr, PRN, Bleeding, Starting on Sat01/01/21 at 2007, For 1 dose, For Post Use Only. Give after delivery of placenta. Following Bolus from bag administration, reduce the rate to 166 mL/hr and administer remaining bag, Post Delivery 1544 (New Bag - Provider: Sangita Sanotro RN) rho(D) immune globulin (HYPERRHO S/D) injection 300 mcg (COMPLETED) 300 mcg, Intramuscular, PRN, if mom negative and baby positive, Starting on Sat01/02/21 at 1830, For 1 dose, 1010 (Given - Provider: Julisa Meeks RN) sodium chloride flush 0.9 % injection 10 mL 10 mL, Intravenous, PRN, Line Care, Starting on Sat01/02/21 at 1830, After every IV line use, zolpidem (AMBIEN) tablet 5 mg 5 mg, Oral, NIGHTLY PRN, Sleep, Starting on Sat01/02/21 at 2111 2119 (Given - Provider: Charisma Dixon, MERLENE) Care Teams (unrecognized sec tion and content) Body Sander Relationship Specialty Start Date End Date Beatris Cosby MD [address] [place] [address] PCP - General Family Medicine 06/30/20 Body Sander Relationship Specialty Start Date End Date Beatris Cosby MD [address] [facility] [place] [address] PCP - General Family Medicine 06/30/20 Body Sander Relationship Specialty Start Date End Date Beatris Cosby MD [address] [facility] [place] [address] PCP - General Family Medicine 06/30/20 FOR RECORDS PERTAINING TO PATIENTS WHO ARE OR HAVE BEEN ENROLLED IN A CHEMICAL DEPENDENCY/SUBSTANCEABUSE PROGRAM, SOME INFORMATION MAY BE OMITTED. This clinical summary was aggregated from multiple sources. Caution should be exercised in using it in the provision of clinical care. This summary normalizes information from multiple sources, and as a consequence, information in this document may materially change the coding, format and clinical context of patient data. In addition, data may be omitted in some cases. CLINICAL DECISIONS SHOULD BE BASED ON THE PRIMARY CLINICAL RECORDS. [facility]. provides no warranty or guarantee of the accuracy or completeness of information in this document.
[2024-04-19] MEDS: LACTATED RINGER'S SOLUTION 1,000 ML 125 ML IV (05:05)
[2024-04-19 05:11] LABS: Hematocrit 29.2 % (36.0-48.0); Hemoglobin 9.4 g/dL (12.0-16.0); Mean Corpuscular HGB Conc 32.2 g/dL (29.9-35.2); Mean Corpuscular Volume 83.9 fL (81.0-99.0); Mean Platelet Volume 9.3 fL (9.5-13.5); Platelet Count 226 10^3/uL (150-450); Red Blood Count 3.48 10^6/uL (4.20-5.40); Red Cell Distribution Width 14.6 % (11.0-15.0); White Blood Count 11.4 10^3/uL (4.0-11.0)
[2024-04-19 05:23] LABS: Amphetamine Screen Urine NEGATIVE (NEGATIVE); Barbiturates Screen Urine NEGATIVE (NEGATIVE); Benzodiazepines Screen Urine NEGATIVE (NEGATIVE); Buprenorphine Screen Urine NEGATIVE (NEGATIVE); Cannabinoid Screen Urine NEGATIVE (NEGATIVE); Cocaine Screen Urine NEGATIVE (NEGATIVE); Methadone Screen Urine NEGATIVE (NEGATIVE); Methamphetamines Screen Urine NEGATIVE (NEGATIVE); Opiate Screen Urine NEGATIVE (NEGATIVE); Oxycodone Screen Urine NEGATIVE (NEGATIVE); Phencyclidine Screen Urine NEGATIVE (NEGATIVE); Tricyclic Antidepressant Urine POSITIVE (NEGATIVE)
[2024-04-19] MEDS: ROPIVACAINE HCL/PF 400 MG/200 ML PREMIX 10 MG EPIDURAL (05:28)
[2024-04-19] MEDS: OXYTOCIN/0.9 % SODIUM CHLORIDE 20 UNITS/1,000 ML PLAST..BAG 125 UNIT IV (06:30)
--- NOTE | 2024-04-19 06:44 | PM.OBHP ---
OB - H&P: HPI History of Present Illness Chief complaint: r/o labor : 3 Para: 2 Gestational age based on last menstrual period: 38.2 History of Present Dating criteria: LMP confirmed by 1st trimester US care: none Ultrasounds: normal 1st trimester US and normal mid trimester US complications comment: abnormal thyroid , then normalized with progression of Medical complications OB: none Labs Blood type: 0 (-) negative Rubella: immune RPR/VDLR: nonreactive GBS status: negative HBsAG: negative Review of Systems ROS Status of ROS: 10 or more systems reviewed and unremarkable except as noted in history and below Psychiatric: Reports: anxiety Meds Home Medications and Allergies Allergies Allergy/AdvReac Type Severity Reaction Status Date / Time ibuprofen Allergy Unknown Verified 02/07/24 14:11 promethazine Allergy Unknown Verified 02/07/24 14:11 Exam Constitutional Vital Signs, click to edit/add: Last Vital Signs Pulse 96 H 04/19/24 06:31 BP 132/71 04/19/24 06:31 Documenting provider has reviewed patient's vital signs: yes Common normals: no apparent distress, average body habitus, oriented x3, no limitations, healthy appearing, alert and well nourished Orientation/consciousness: Yes awake, Yes oriented to person, Yes oriented to place and Yes oriented to time HENMT Common normals: normocephalic Eye Common normals: EOMs intact bilaterally Neck & C-Spine Common normals: full ROM Lymph Lymphatic: no lymphadenopathy noted Chest Common normals: inspection of chest normal Respiratory Common normals: normal respiratory effort, no retractions, no use of accessory muscles, clear to auscultation bilaterally and percussion normal Auscultation: clear to auscultation bilaterally Cardio Common normals: regular rate and regular rhythm Rate: regular rate Rhythm: regular rhythm GI Common normals: Normal to inspection, nondistended, normoactive bowel sounds present and non-tender Inspection: normal to inspection Auscultation: normoactive bowel sounds Palpation: soft Common normals: no CVA tenderness Back & Pelvis Common normals: no CVA tenderness Extremity Common normals: normal to inspection General: normal exam except as noted Neuro Common normals: oriented x3 Sensorium/orientation: awake, alert, oriented to person, oriented to place and oriented to time Psych Common normals: mental status grossly normal, thought process normal, cooperative, affect normal, speech normal, activity/motor behavior normal, denies hallucinations, denies homicidal ideation and denies suicidal ideation Attitude: calm Activity/motor behavior: appropriate eye contact Speech: normal speech Results Labs Labs: Short CBC 04/19/24 Range/Units 05:05 WBC 11.4 H (4.0-11.0) 10^3/uL Hgb 9.4 L (12.0-16.0) g/dL Hct 29.2 L (36.0-48.0) % Plt Count 226 (150-450) 10^3/uL OB - A/P Assessment and Plan (1) Term : Plan admit for active, spontaneous labor
--- NOTE | 2024-04-19 06:56 | PM.OBPRCVD ---
Procedure Procedure: normal spontaneous delivery of viable baby female Intrapartal events: None Induction method: none Delivery augmentation: rupture of membranes Delivery monitor: external FHT and external uterine Route of delivery: Episiotomy Description: none L&D Laceration Description: none Estimated blood loss (mL): 450 Anesthesia type: Epidural Disposition: no change Delivery date: 04/19/24 Gender: female presentation: vertex Placental delivery description: Spontaneous cord description: 3 Vessels heart rate - 1 minute: 100 bpm or Greater respiratory effort - 1 minute: Slow Respiration/Weak Cry muscle tone - 1 minute: Active Movement reflex response - 1 minute: Prompt Response color - 1 minute: Bluish Hands or Feet total score - 1 minute: 8 heart rate - 5 minute: 100 bpm or Greater respiratory effort - 5 minute: Slow Respiration/Weak Cry muscle tone - 5 minute: Active Movement reflex response - 5 minute: Prompt Response color - 5 minute: Bluish Hands or Feet total score - 5 minute: 8
[2024-04-19 10:22] LABS: Bilirubin Urine NEGATIVE (NEGATIVE); Blood Urine NEGATIVE (NEGATIVE); Clarity Urine CLEAR (CLEAR); Color Urine YELLOW (YELLOW); Glucose Urine UA NEGATIVE (NEGATIVE); Ketones Urine TRACE mg/dL (NEGATIVE); Leukocyte Esterase Urine NEGATIVE (NEGATIVE); Nitrite Urine NEGATIVE (NEGATIVE); Protein Urine NEGATIVE (NEG/TRACE); Specific Gravity Urine 1.025 (1.005-1.025); Urobilinogen Urine 0.2 EU/dL (0.2-1.0)
[2024-04-19 10:28] LABS: Urine Microscopic Indicated NO
[2024-04-19] MEDS: IBUPROFEN 400 MG TABLET 800 MG PO (23:45)
--- NOTE | 2024-04-20 06:31 | P.OBPN_ITS ---
OB - PN: Subj Subjective Patient comments: no complaints and flatus present status: doing well Exam Narrative Exam Narrative: voicing no complaints Constitutional Vital Signs, click to edit/add: Last Vital Signs Temp 98.6 F 04/19/24 23:45 Pulse 74 04/19/24 23:45 Resp 14 04/19/24 23:45 BP 136/81 04/19/24 23:45 O2 Del Method Room Air 04/19/24 23:45 Documenting provider has reviewed patient's vital signs: yes Common normals: no apparent distress, oriented x3, no limitations and well nourished HENMT Common normals: normocephalic and head/scalp atraumatic Eye Pupil: PERRL and accommodation reflex normal Neck & C-Spine Common normals: full ROM and supple Respiratory Common normals: normal respiratory effort Cardio Common normals: regular rate and regular rhythm GI Common normals: Normal to inspection, nondistended, normoactive bowel sounds present, soft to palpation and non-tender Common normals: no CVA tenderness Back & Pelvis Common normals: no thoracic nor lumbar tenderness Extremity Common normals: normal to inspection, full ROM and no calf tenderness Neuro Common normals: oriented x3, CN's II-XII intact bilaterally, moves all extremities, no focal motor deficits and no sensory deficits noted Psych Common normals: mental status grossly normal, thought process normal, cooperative and affect normal Results Labs Labs: Urine 04/19/24 Range/Units 05:05 Urine Color Yellow (YELLOW) Urine Clarity Clear (CLEAR) Urine pH 6.0 (5.0-9.0) Ur Specific [place] 1.025 (1.005-1.025) Urine Protein Negative (NEG/TRACE) mg/dL Urine Glucose (UA) Negative (NEGATIVE) mg/dL OB - PN: A/P Assessment and Plan (1) Normal vaginal delivery: Assessment and Plan: normal lochia, perineum intact, breasts soft, bonding well, ambulating and eliminating normally, voicing no complaints Plan - Vaginal Delivery day: 1 Plan: routine care Time Spent with Patient Time: Total time spent is greater than 50% in coordination of care (as documented) at patient's floor/unit and/or counseling patient: Total time spent with greater than 50% in coordination of care (as documented) at patient's floor/unit and/or counseling patient: less than 15 minutes
[2024-04-20 06:44] LABS: Basophils Absolute Auto 0.1 10^3/uL (0.0-0.1); Basophils Percent Auto 0.4 % (0.2-2.0); Eosinophils Absolute Auto 0.1 10^3/uL (0.0-0.7); Eosinophils Percent Auto 0.6 % (0.9-7.0); Hemoglobin 7.7 g/dL (12.0-16.0); Immature Granulocytes Abs Auto 0.12 10^3/uL (0.00-0.03); Immature Granulocytes Pct Auto 0.9 % (0.0-0.5); Lymphocytes Absolute Auto 3.3 10^3/uL (1.2-3.8); Lymphocytes Percent Auto 25.5 % (20.5-60.0); Mean Corpuscular HGB Conc 32.1 g/dL (29.9-35.2); Mean Corpuscular Volume 84.2 fL (81.0-99.0); Mean Platelet Volume 9.5 fL (9.5-13.5); Monocytes Percent Auto 7.5 % (1.7-12.0); Neutrophils Absolute Auto 8.5 10^3/uL (1.4-6.5); Neutrophils Percent Auto 65.1 % (43.0-75.0); Platelet Count 238 10^3/uL (150-450); Red Blood Count 2.85 10^6/uL (4.20-5.40); Red Cell Distribution Width 14.5 % (11.0-15.0); White Blood Count 13.1 10^3/uL (4.0-11.0)
--- NOTE | 2024-04-20 07:46 | PM.OBDS ---
DS: Providers Provider Date of admission: 04/19/24 04:46 Primary care physician: RICHARD COSBY Admitting clinician: KENYON DAS Discharging clinician: Denise Salomon Anticipated date of discharge: 04/20/24 DS: Diagnosis Discharge Diagnosis (1) Normal vaginal delivery: Assessment and plan: CONDITION GOOD Plan DISCHARGE PER PATIENT'S REQUEST, NO CONTRAINDICATION OB - DS: Summary Hospital Course Hospital Course: UNCOMPLICATED Time spent discussing smoking cessation with patient: 3 to 10 minutes Peripartum Data - Vaginal Delivery Laceration description: none Complications complications: none Infant Delivery method: spontaneous vaginal delivery Gender: female Discharge plan: home Status at Discharge Cognitive/behavioral status at discharge: WNL Functional status at discharge: independent ambulation Overall status at discharge: patient is progressing back to baseline Time Spent with Patient Time attestation: Total time spent providing and/or coordinating discharge services: Time spent: less than 30 minutes Exam Narrative Exam Narrative: VOICING NO COMPLAINTS, REQUESTING DISCHARGE Constitutional Vital Signs, click to edit/add: Last Vital Signs Temp 98.6 F 04/19/24 23:45 Pulse 74 04/19/24 23:45 Resp 14 04/19/24 23:45 BP 136/81 04/19/24 23:45 O2 Del Method Room Air 04/19/24 23:45 Documenting provider has reviewed patient's vital signs: yes Common normals: no apparent distress, average body habitus, oriented x3, no limitations, healthy appearing, alert and well nourished [facility] Common normals: normocephalic and head/scalp atraumatic Eye Pupil: PERRL and accommodation reflex normal Neck & C-Spine Common normals: full ROM and supple Respiratory Common normals: normal respiratory effort Cardio Common normals: regular rate and regular rhythm GI Common normals: Normal to inspection, nondistended, normoactive bowel sounds present, soft to palpation and non-tender Common normals: no CVA tenderness Back & Pelvis Common normals: no thoracic nor lumbar tenderness Extremity Common normals: normal to inspection, full ROM, normal capillary refill and no calf tenderness Neuro Common normals: CN's II-XII intact bilaterally, moves all extremities, no focal motor deficits and no sensory deficits noted Psych Common normals: mental status grossly normal, thought process normal, cooperative, affect normal and speech normal DS: Data Data Completed and Pending Labs on day of discharge: Labs from last 24 hours 04/20/24 04/19/24 06:33 05:05 WBC 13.1 H RBC 2.85 L Hgb 7.7 L Hct 24.0 L MCV 84.2 MCH 27.0 MCHC 32.1 RDW 14.5 Plt Count 238 MPV 9.5 Neut % (Auto) 65.1 Lymph % (Auto) 25.5 [place] % (Auto) 7.5 Eos % (Auto) 0.6 L Baso % (Auto) 0.4 Neut # (Auto) 8.5 H Lymph # (Auto) 3.3 [place] # (Auto) 1.0 H Eos # (Auto) 0.1 Baso # (Auto) 0.1 Abs Immat Gran (auto) 0.12 H Imm/Tot Granulo (auto) 0.9 H Urine Color Yellow Urine Clarity Clear Urine pH 6.0 Ur Specific [place] 1.025 Urine Protein Negative Urine Glucose (UA) Negative Urine Ketones Trace A Urine Occult Blood Negative Urine Nitrite Negative Urine Bilirubin Negative Urine Urobilinogen 0.2 Ur Leukocyte Esterase Negative Discharge Plan Discharge Disposition: Home, Self-Care Condition: Good Assessment: CONDITION GOOD Health Concerns: NONE Plan of Treatment: DISCHARGE HOME Discharge Medications: Continued fluoxetine 40 mg capsule 40 mg PO DAILY quetiapine 50 mg tablet 50 mg PO .[facility] Print Language: Polish Forms: Portal Instructions
[2024-04-20 08:18] VITALS: TEMP 35.9
[2024-04-20 08:19] VITALS: BP 114/61; PULSE 71
[2024-04-20] MEDS: RHO(D) IMMUNE GLOBULIN 1,500 UNIT SYRINGE 1500 UNIT IV (09:38)
[2024-04-20] MEDS: ADACEL DIPH,PERTUSS(ACELL),TET VAC/PF 0.5 ML ADULT SYRINGE IM (11:52)
== END 2024-04-20 12:30 | disposition home or self-care (01) | DRG 560 ==
PROVIDERS: Obstetrics & Gynecology; Admitting Provider Midwife; PCP Family Medicine; Visit Provider Midwife
DX: O80 Encounter for full-term uncomplicated delivery (principal); Z3A.38 38 weeks gestation of pregnancy; Z37.0 Single live birth
CPT/HCPCS: 36415; 59050; 59410; 80307; 81003; 85025; 85027; 85461; 86850; 86900; 86901; 90471; 90715; 96365; 96366; 96372; J2791; J2795

== ENCOUNTER 2024-07-30 08:32 | Outpatient (OUT) | payer MEDICAID, SELFPAY ==
--- NOTE | 2024-07-30 13:57 | PC.NURSE ---
Lexi and 3.5 mo daughter Puja arrive for support. Lexi is frustrated due to significant drop in milk supply. Started exclusively tin the hospital, then pumping at home so baby would take a bottle during the day and breast fed at night. States was able to pump 12-16 oz (combined) of milk every 2-3 hours. For the last 3.5 weeks had a drastic drop to less than 1 oz (combined). After lots of discussion, pt admits to having an IUD placed 06/22/2024 (cherelle). Able to place milk decrease within 1 week and minimal output by 2 full weeks after placement of IUD. Discussed options of leaving IUD in place and formula feeding or removal and attempting to recover supply. Pt will talk with partner and decide best option for them. No further risk factors identified for sudden change in supply. Infant thriving on mom's milk, gaining well and happy baby by mom's report. Aware to call for continued support as needed. Leaves ambulatory with baby.
== END 2024-07-30 14:17 | disposition home or self-care (01) ==
LOC: FBCO 08:34
PROVIDERS: PCP Family Medicine; Visit Provider Midwife
DX: Z39.1 Encounter for care and examination of lactating mother (principal)

== ENCOUNTER 2024-12-15 06:33 | Day surgery (SDC) | payer MEDICAID, SELFPAY ==
[2024-12-15] VITALS (14 sets, daily range): BP systolic 120–135; BP diastolic 64–110; PULSE 74–92; TEMP 36.4; O2SAT 93–100; BMI 35.6
[2024-12-15 06:46] LABS: Basophils Absolute Auto 0.1 10^3/uL (0.0-0.1); Eosinophils Absolute Auto 0.2 10^3/uL (0.0-0.7); Eosinophils Percent Auto 2.2 % (0.9-7.0); Hematocrit 35.4 % (36.0-48.0); Hemoglobin 11.5 g/dL (12.0-16.0); Immature Granulocytes Abs Auto 0.01 10^3/uL (0.00-0.03); Immature Granulocytes Pct Auto 0.1 % (0.0-0.5); Lymphocytes Absolute Auto 2.5 10^3/uL (1.2-3.8); Lymphocytes Percent Auto 34.4 % (20.5-60.0); Mean Corpuscular HGB Conc 32.5 g/dL (29.9-35.2); Mean Corpuscular Hemoglobin 26.9 pg (26.7-34.0); Mean Corpuscular Volume 82.9 fL (81.0-99.0); Mean Platelet Volume 8.7 fL (9.5-13.5); Monocytes Absolute Auto 0.7 10^3/uL (0.3-0.8); Monocytes Percent Auto 9.5 % (1.7-12.0); Neutrophils Absolute Auto 3.8 10^3/uL (1.4-6.5); Neutrophils Percent Auto 52.8 % (43.0-75.0); Platelet Count 307 10^3/uL (150-450); Red Blood Count 4.27 10^6/uL (4.20-5.40); White Blood Count 7.2 10^3/uL (4.0-11.0)
[2024-12-15 07:05] LABS: HCG Quantitative <1 mIU/mL
[2024-12-15] MEDS: LACTATED RINGER'S SOLUTION 1,000 ML 50 ML IV ×3 (07:22→09:48)
--- NOTE | 2024-12-15 08:34 | P.ON_ITS ---
Brief Operative Note Date of procedure: 12/15/24 Pre-op diagnosis general: retained iud Post-op diagnosis: same as pre-op Procedure: NAME OF PROCEDURE: [d&c hysteroscopy, dx laparoscopy with removal of iud] PROCEDURE: The patient was taken back to the Operating Room where she was prepped and draped in normal sterile fashion after being placed under general anesthesia without difficulty. She was also placed in the dorsal lithotomy position. A weighted speculum was placed in the patient?s vagina. The anterior lip of the cervix was identified and grasped with a single tooth tenaculum. The patient?s uterus was then sounded roughly to [?8 ] cm. The patient was then gently dilated using Hegar dilators. The hysteroscope was passed through the patient?s cervix into the uterus. Both ostia were identified. Normal appearing endometrium. No gross evidence of polyps, fibroids or malignancy. The hysteroscope was then removed from the patient's uterus.?? The single tooth tenaculum was then removed from the patient's anterior lip of the cervix where excellent hemostasis was noted. A sponge stick was placed into the patient's vagina. Attention was turned to the patient's abdomen, where a small umbilical incision was made. The fascia was tented using Winston clamps and the fascia was entered sharply. Confirmation of intraabdominal placement of the 10 mm port was confirmed under direct visualization using a laparoscope. The patient's abdomen was then insufflated using CO2 gas with approximately 4 liters. A second port was placed left laterally, this was done under direct visualization with a 5 mm port. Survey of the patient's abdomen demonstrated normal liver and gallbladder. Survey of the patient's pelvic anatomy demonstrated normal appearing rt and lt ovary and tubes as well as normal appearing uterus. No endometrial implants could be noted, no evidence of any pelvic disease was seen, normal appearing pelvic cavity. the iud was identified within the omentum, the strings were grasped and iud was removed without difficulty. All instruments were removed from the patient's abdomen. The patient's abdomen was deinsufflated of CO2 gas. The patient tolerated the procedure well. Sponge stick was removed from the patient's vagina. The patient's infraumbilical fascia was closed using #0 Vicryl on a GI needle. The patient's skin was closed laterally and infraumbilically using 4-0 Vicryl. The patient tolerated the procedure well. Sponge, lap and needle counts were correct x 2. The patient was taken to Recovery Room in stable condition. Anesthesia: AZA Surgeon: Ariel Rock Stringer Up Soldering Machine: Beatris Huff Estimated blood loss (mL): 5 Pathology: none sent Condition: stable Disposition: PACU Urinary Catheter Management Urinary Catheter Management Urethral: Cath placed during this visit: no
[2024-12-15] MEDS: HYDROCODONE/ACET 5-325 MG TABLET 1 TAB PO (09:45)
--- NOTE | 2024-12-15 09:49 | PC.NURSE ---
0945:pt reports pain 6/10,given PRN norco at this time.
--- NOTE | 2024-12-15 10:36 | PC.NURSE ---
1030: pt ambulates to bathroom,voids without difficulty.
== END 2024-12-15 10:40 | disposition home or self-care (01) ==
PROVIDERS: PCP Family Medicine; Visit Provider Obstetrics & Gynecology
PROC: (CPT 840; principal; 2024-12-15 07:30)
DX: T83.89XA Other specified complication of genitourinary prosthetic devices, implants and grafts, initial encounter (principal)
CPT/HCPCS: 49329; 58558; 36415; 84702; 85025; J1100; J1885; J2250; J2405; J2704; J3010